=== PATIENT | male | born 1990 | race African-American/Black ===

== ENCOUNTER 2018-03-14 12:15 | Emergency (ER) | payer BC, SELFPAY ==
[2018-03-14 12:17] VITALS: BP 152/81; PULSE 98; RESP 16; TEMP 36.4; O2SAT 95; BMI 47.9
--- NOTE | 2018-03-14 12:28 | ED.DCSUM_ITS ---
- ER Visit Summary Date of Service: 03/14/18 Chief Complaint: Questionable wound infection History of Present Illness: The patient is a 27 M who sustained an abrasion to the right mid tibial area 8 days ago. He was working on a car when he slipped and sustained the abrasion. He states that he thought it was healing but then noticed some redness coming from it a couple days ago. There is been no drainage. No itching. No fevers. He has been using a triple antibiotic cream and a peroxide spray that he found at work. Physical Examination: Vital signs are reviewed. Right leg exam reveals an abrasion that measures approximately 4.5-5 cm in the mid tibial area. There is some mild surrounding erythema. There is a small pocket of serous fluid in the middle of this abrasion. Not tender to palpation. Test Results: None indicated Emergency Department Course and Treatment: Patient will be treated with Keflex. I will also give him bacitracin ointment for the surgery. He will follow-up with his PCP Treatment Plan: [] Disposition: Discharge Impression: Wound infection This note was generated with [employer] dictation software. It may contain incorrect words, spelling, and punctuation that were not noted in review of the chart prior to signing ED Disposition - Plan for ED Patient: Chief Complaint: Cellulitis Referrals: Care Physician,No Primary [Primary Care Provider] -
--- NOTE | 2018-03-14 12:28 | ED.DEP ---
ED Disposition - Plan for ED Patient: Disposition: Home or Assisted Living Chief Complaint: Cellulitis Instructions: Discharge Instructions for Cellulitis Prescriptions: Cephalexin [Keflex] 500 mg PO Q6 #28 cap Bacitracin Ointment 1 applic TOPICAL TID #1 tube Referrals: Care Physician,No Primary [Primary Care Provider] -
[2018-03-14] MEDS: Cephalexin 250 MG Capsule 500 MG PO (12:38)
== END 2018-03-14 12:41 | disposition home or self-care (01) ==
LOC: ED 12:35
PROVIDERS: Emergency Provider Emergency Medicine
DX: S80.811A Abrasion, right lower leg, initial encounter (principal); L08.9 Local infection of the skin and subcutaneous tissue, unspecified; W01.0XXA Fall on same level from slipping, tripping and stumbling without subsequent striking against object, initial encounter; Y93.89 Activity, other specified; Y92.9 Unspecified place or not applicable; Y99.9 Unspecified external cause status; Z72.0 Tobacco use
CPT/HCPCS: 99283

== ENCOUNTER 2018-03-17 19:15 | Emergency (ER) | payer BC, SELFPAY ==
[2018-03-17 19:16] VITALS: BP 155/100; PULSE 89; RESP 18; TEMP 37.2; O2SAT 97; BMI 52.7
[2018-03-17] MEDS: Clindamycin 600 MG/50 ML BAG 100 MG IV (20:55)
[2018-03-17 21:12] LABS: Absolute Lymphocyte Count 2.97 X10^3/ul (0.83-4.51); Absolute Neutrophil Count 7.4 X10^3/uL (2.0-7.7); Basophil# 0.04 X10^3/uL; Basophil% 0.3 % (0-1); Eosinophil# 0.28 X10^3/uL; Eosinophils% 2.4 % (0-5); Hematocrit 44.7 % (40-54); Hemoglobin 14.7 g/dl (13.0-16.5); Lymphocyte # 2.97 X10^3/ul (4.0); Lymphocyte % 25.7 % (19-41); Mean Corp Hgb Conc 32.9 g/gl (32-36); Mean Corpuscular Hgb 27.3 pg (27.0-32.0); Mean Corpuscular Volume 82.9 fL (80-94); Mean Platelet Vol. 10.5 fl (6.2-12.0); Monocyte# 0.81 X10^3/uL; Neutrophil # 7.43 X10^3/uL (2.7-7.7); Neutrophil % 64.5 % (47-70); POSITIVE COUNT NO; POSITIVE DIFFERENTIAL NO; POSITIVE MORPHOLOGY NO; Platelet Count 253 K/mm3 (150-450); RBC Distribution Width CV 12.6 % (11.6-14.6); RBC Distribution Width SD 37.6 fl (35.1-43.9); Red Blood Count 5.39 M/mm3 (4.6-6.2); White Blood Count 11.5 K/mm3 (4.4-11.0)
[2018-03-17 21:18] LABS: Anion Gap 4 (5-15); BUN 14 mg/dL (7-18); BUN/Creat Ratio 13.9 RATIO (10-20); Calcium,Total 9.4 mg/dL (8.5-10.1); Chloride 102 mmol/L (98-107); Creatinine, Serum 1.01 mg/dL (0.70-1.30); EST Glomerular Filtration Rate 95 mL/min (>60); Est Glom Filt Rate - Afr Amer 115 mL/min (>60); Estimated Creatinine Clearance 121.65 ml/min; Glucose 78 mg/dL (74-106); Sodium Level 137 mmol/L (136-145)
--- NOTE | 2018-03-17 21:48 | ED.DCSUM_ITS ---
- ER Visit Summary Date of Service: 03/17/18 Chief Complaint: Cellulitis right lower extremity History of Present Illness: The patient is a 27 M who developed abrasions to the right castillo 2 weeks ago. He noted some mild redness around the wound several days ago. He was seen in the ER yesterday. The wound was treated with bacitracin ointment and he was started on p.o. Keflex. The area of erythema was outlined. Patient presents back today stating the erythema extended slightly beyond the outline earlier today. With leg elevation it seems to be somewhat improved now. He also noted a new area of redness just inferior to the abrasions went to have this checked. He does not have fever or chills. Physical Examination: Vital signs include a blood pressure 155/100, otherwise unremarkable. Head neck examination is unremarkable. Heart is regular rate and rhythm. On lung sounds are clear. Abdomen is soft nontender. Right lower extremity examination reveals linear abrasions over the right castillo. He has mild surrounding erythema. This time as it does not extend beyond the previous outlined area. Calf is soft and nontender. Test Results: CBC was white count 11.5 with normal differential. Chemistry studies normal. Blood cultures are drawn. Emergency Department Course and Treatment: Patient is given a dose of clindamycin IV. Patient will have Bactrim added to his course of Keflex. I do not feel he requires admission for IV antibiotics at this time. Repeat blood pressure prior to discharge is 146/88. Patient was given return instructions. He understands. Treatment Plan: [] Disposition: Discharge Impression: Cellulitis right castillo This note was generated with [employer] dictation software. It may contain incorrect words, spelling, and punctuation that were not noted in review of the chart prior to signing ED Disposition - Plan for ED Patient: Disposition: Home or Assisted Living Chief Complaint: Cellulitis Instructions: ED Staph Infec Abx Tx Only Prescriptions: Smz/Tmp Ds [Bactrim Ds] 1 tablet PO BID #20 tablet Referrals: Page Williamson MD [STAFF PHYSICIAN] - As Needed
[2018-03-17 21:59] VITALS: BP 146/88; PULSE 77; RESP 16; O2SAT 96
== END 2018-03-17 23:46 | disposition home or self-care (01) ==
PROVIDERS: Emergency Provider Emergency Medicine
DX: L03.115 Cellulitis of right lower limb (principal); Z72.0 Tobacco use
CPT/HCPCS: 36415; 80048; 85025; 87040; 96365; 99285; A4216

== ENCOUNTER 2018-09-07 08:29 | Emergency (ER) | payer OTHER, SELFPAY ==
[2018-09-07 08:29] VITALS: BP 152/75; BP 160/85; PULSE 85; PULSE 88; RESP 17; TEMP 36.7; O2SAT 100; O2SAT 94; BMI 47.9
--- NOTE | 2018-09-07 08:33 | EKG12_ITS ---
Test Reason : CP Blood Pressure : / mmHG Vent. Rate : 079 BPM Atrial Rate : 079 BPM P-R Int : 168 ms QRS Dur : 080 ms QT Int : 372 ms P-R-T Axes : 043 -13 022 degrees QTc Int : 426 ms Normal sinus rhythm May be normal variant Borderline ECG Confirmed by BETTY PEARSON, SHAWN ([id number]), greeting card editor JOHNNY MORAN ([id number]) on 09/15/2018 1:11:11 PM Referred By: MELISA/ALESHIA Confirmed By:SHAWN HERNÁNDEZ MD
--- NOTE | 2018-09-07 08:33 | RAD_ITS ---
STUDY: X-RAY CHEST REASON FOR EXAM: Male, 27 years old. Anterior chest pain. TECHNIQUE: PA and lateral views of the chest. COMPARISON: Comparison is made with prior examination dated August 18, 2017. FINDINGS: EKG electrodes are seen. The lungs are clear and expanded. There is no demonstrated pleural abnormality. Normal size heart. Normal mediastinum and aaron. Normal visualized pulmonary arteries. Normal visualized aortic arch and descending thoracic aorta. Normal visualized thoracic spine. Normal visualized ribs, clavicles, and shoulders. There is no demonstrated abnormality of the visualized soft tissue structures of the upper abdomen. RAD/Chest PA and Lateral IMPRESSION: Normal x-ray examination of the chest. Electronically Signed: David Escobar MD at 9:06 EDT Tel [phone], Service support ,
--- NOTE | 2018-09-07 08:44 | ED.VISSUMM ---
- ER Visit Summary Date of Service: 09/07/18 Chief Complaint: Chest discomfort History of Present Illness: The patient is a 27 M history. Prior left shoulder scope. Patient states he typically gets up at 5:30 in the morning when he did today discuss back. Denies any nausea. No shortness of breath. No diaphoresis. Denies any recent exertional dyspnea. No history of DVT or PE. No risk factors. He denies any recent travel, surgery, mobilization. No calf pain or swelling. No hemoptysis. The pain is not pleuritic. He denies any change in the pain with movement. He denies any recent chest wall trauma. His work involves a lot of heavy lifting but he denies any injury to his chest wall. H is never had pain like this before. He has had reflux before but states this feels differently. He denies any recent illness other than he has had some mild diarrhea the last few days. Physical Examination: Vital signs are stable and afebrile. His initial blood pressure is 155. His pulse ox is 100% on room air no hypoxia. H EENT exam unremarkable. Neck nontender no JVD no lymphadenopathy. Lungs clear to auscultation bilaterally. Heart regular rate and rhythm no murmur. Chest wall is completely nontender. No ecchymosis or bruising. No subcu air crepitus. Abdomen is soft and nontender. Nondistended. Normal bowel sounds no peritoneal signs. No right upper quadrant tenderness. Patient is moving all 4 extremities. They are neurovascularly intact. Calves are nontender without edema or cords. He has equal and symmetrical project designer strength. Equal symmetrical dorsi plantarflexion. Equal symmetrical radial pulses. Back is completely nontender. Neurologically is awake and alert with no focal motor or sensory deficits. NIH score is 0. Test Results: EKG shows a sinus rhythm a rate of 79 OR or ischemia. No signs of pericarditis. Emergency Department Course and Treatment: [] Treatment Plan: [] Disposition: [] Impression: Acute chest pain This note was generated with [employer] dictation software. It may contain incorrect words, spelling, and punctuation that were not noted in review of the chart prior to signing ED Disposition - Plan for ED Patient: Chief Complaint: Chest Pain Referrals: Care Physician,No Primary [Primary Care Provider] -
--- NOTE | 2018-09-07 08:49 | ED.DCSUM_ITS ---
- ER Visit Summary Date of Service: 09/07/18 Chief Complaint: Chest discomfort History of Present Illness: The patient is a 27 M history. Prior left shoulder scope. Patient states he typically gets up at 5:30 in the morning when he did today discuss back. Denies any nausea. No shortness of breath. No d iaphoresis. Denies any recent exertional dyspnea. No history of DVT or PE. No risk factors. He denies any recent travel, surgery, mobilization. No calf pain or swelling. No hemoptysis. The pain is not pleuritic. He denies any change in the pain with movement. He denies any recent chest wall trauma. His work involves a lot of heavy lifting but he denies any injury to his chest wall. H is never had pain like this before. He has had reflux before but states this feels differently. He denies any recent illness other than he has had some mild diarrhea the last few days. Physical Examination: Vital signs are stable and afebrile. His initial blood pressure is 155. His pulse ox is 100% on room air no hypoxia. H EENT exam unremarkable. Neck nontender no JVD no lymphadenopathy. Lungs clear to auscultation bilaterally. Heart regular rate and rhythm no murmur. Chest wall is completely nontender. No ecchymosis or bruising. No subcu air crepitus. Abdomen is soft and nontender. Nondistended. Normal bowel sounds no peritoneal signs. No right upper quadrant tenderness. Patient is moving all 4 extremities. They are neurovascularly intact. Calves are nontender without edema or cords. He has equal and symmetrical key filer strength. Equal symmetrical dorsi plantarflexion. Equal symmetrical radial pulses. Back is completely nontender. Neurologically is awake and alert with no focal motor or sensory deficits. NIH score is 0. Test Results: EKG shows a sinus rhythm a rate of 79 LA or ischemia. No signs of pericarditis. Emergency Department Course and Treatment: [] Treatment Plan: [] Disposition: [] Impression: Acute chest pain This note was generated with [employer] dictation software. It may contain incorrect words, spelling, and punctuation that were not noted in review of the chart prior to signing ED Disposition - Plan for ED Patient: Chief Complaint: Chest Pain Referrals: Care Physician,No Primary [Primary Care Provider] -
[2018-09-07 09:57] VITALS: BP 129/87; PULSE 78; RESP 18; O2SAT 100
--- NOTE | 2018-09-07 09:59 | ED.DEP ---
ED Disposition - Plan for ED Patient: Disposition: Home or Assisted Living Chief Complaint: Chest Pain Instructions: ED Chest Pain Atypical Unkn Cause Referrals: Salvador Matute MD [STAFF PHYSICIAN] - As Needed Additional Instructions: Motrin and/or Tylenol for pain. Both your chest x-ray and EKG were normal today.
[2018-09-07 10:47] VITALS: BP 127/88; PULSE 82; RESP 16; TEMP 36.6; O2SAT 100
== END 2018-09-07 10:47 | disposition home or self-care (01) ==
PROVIDERS: Emergency Provider Emergency Medicine
DX: R07.9 Chest pain, unspecified (principal); R19.7 Diarrhea, unspecified; Z72.0 Tobacco use
CPT/HCPCS: 71046; 93005; 99284; A4216

== ENCOUNTER 2019-03-08 00:46 | Emergency (ER) | payer MEDICAID, SELFPAY ==
[2019-03-08 00:50] VITALS: BP 157/84; PULSE 90; RESP 18; TEMP 36.6; O2SAT 96; BMI 48.4
[2019-03-08 00:53] VITALS: RESP 18
--- NOTE | 2019-03-08 01:06 | ED.DCSUM_ITS ---
- ER Visit Summary Date of Service: 03/08/19 Chief Complaint: Back pain History of Present Illness: The patient is a 28 M who presents with back pain. This began 4 days ago. He describes it as sore and throbbing. He was helping his brother move a dresser. He states his brother slipped on the steps which caused him to twist his back. He also has developed some pain shooting down his left leg. He denies any urinary retention fecal incontinence prior back surgery abdominal pain or fever. He cannot take NSAIDs due to history of stomach irritation. Physical Examination: Afebrile vitals unremarkable No distress Regular Lungs clear Abdomen soft nontender Mild reproducible lumbar tenderness Normal strength and sensation of the lower extremities, 5 out of 5 dorsiflexion, plantarflexion, extensor hallucis longus Negative straight leg raise Test Results: Not indicated Emergency Department Course and Treatment: I discussed that patient may benefit from prednisone given his radicular symptoms. Incidentally the patient was actually started on prednisone today for bronchitis. He was advised to continue this as well as supportive care and the patient was discharged. Treatment Plan: [] Disposition: Discharge Impression: Lumbosacral strain This note was generated with [employer] dictation software. It may contain incorrect words, spelling, and punctuation that were not noted in review of the chart prior to signing ED Disposition - Plan for ED Patient: Referrals: Care Physician,No Primary [Primary Care Provider] -
--- NOTE | 2019-03-08 01:06 | ED.DEP ---
ED Disposition - Plan for ED Patient: Instructions: ED Sprain Strain Lumbar Referrals: Care Physician,No Primary [Primary Care Provider] -
[2019-03-08 01:25] VITALS: RESP 18
== END 2019-03-08 01:26 | disposition home or self-care (01) ==
LOC: ED 01:08
PROVIDERS: Emergency Provider Emergency Medicine
DX: S39.012A Strain of muscle, fascia and tendon of lower back, initial encounter (principal); X50.1XXA Overexertion from prolonged static or awkward postures, initial encounter; Y93.E6 Activity, residential relocation; Y92.9 Unspecified place or not applicable; Y99.9 Unspecified external cause status; Z72.0 Tobacco use
CPT/HCPCS: 99282

== ENCOUNTER 2019-03-25 05:27 | Emergency (ER) | payer MEDICAID, SELFPAY ==
[2019-03-25 05:27] VITALS: BP 145/80; PULSE 95; RESP 18; TEMP 36.6; O2SAT 96; BMI 48.4
--- NOTE | 2019-03-25 05:52 | ED.VISSUMM ---
- ER Visit Summary Date of Service: 03/25/19 Chief Complaint: Abdominal pain History of Present Illness: The patient is a 28 M who presents with abdominal pain. This began about 3 days ago. His pain is all epigastric. He describes as cramping. He is also had diarrhea. Had 4 episodes of diarrhea last night. He also reports some mild nausea with dry heaving. No fever chest pain shortness of breath. He denies any medical problems or daily medications. Physical Examination: Afebrile vitals unremarkable No distress resting comfortably Moist mucous membranes Heart regular rate and rhythm Lungs clear Abdomen soft he does have some epigastric abdominal tenderness No guarding no rebound Test Results: CBC, CMP, lipase all normal. Emergency Department Course and Treatment: Patient was given a GI cocktail. He reports unchanged symptoms on reevaluation. However laboratory studies are normal, vital signs are normal, he has no guarding or rebound. I do not believe this is an acute surgical pathology. He was given prescriptions for Bentyl and Prilosec. He was advised to follow-up as an outpatient and was discharged home. Treatment Plan: [] Disposition: Discharge Impression: Epigastric abdominal pain This note was generated with [employer] dictation software. It may contain incorrect words, spelling, and punctuation that were not noted in review of the chart prior to signing ED Disposition - Plan for ED Patient: Referrals: Care Physician,No Primary [Primary Care Provider] -
[2019-03-25] MEDS: Mag Hydrox/Al Hydrox/Simeth 30 ML UDC PO (05:55)
[2019-03-25 05:58] LABS: Absolute Lymphocyte Count 3.22 X10^3/ul (0.83-4.51); Absolute Neutrophil Count 5.8 X10^3/uL (2.0-7.7); Basophil# 0.03 X10^3/uL; Basophil% 0.3 % (0-1); Eosinophil# 0.29 X10^3/uL; Eosinophils% 2.9 % (0-5); Hematocrit 44.9 % (40-54); Hemoglobin 14.8 g/dl (13.0-16.5); Lymphocyte # 3.22 X10^3/ul (4.0); Lymphocyte % 31.8 % (19-41); Mean Corpuscular Hgb 27.6 pg (27.0-32.0); Mean Corpuscular Volume 83.8 fL (80-94); Mean Platelet Vol. 10.4 fl (6.2-12.0); Monocyte# 0.77 X10^3/uL; Monocyte% 7.6 % (0-10); Neutrophil # 5.81 X10^3/uL (2.7-7.7); Neutrophil % 57.2 % (47-70); Platelet Count 242 K/mm3 (150-450); RBC Distribution Width CV 12.7 % (11.6-14.6); RBC Distribution Width SD 38.2 fl (35.1-43.9); Red Blood Count 5.36 M/mm3 (4.6-6.2); White Blood Count 10.1 K/mm3 (4.4-11.0)
[2019-03-25 05:59] LABS: POSITIVE COUNT NO; POSITIVE DIFFERENTIAL NO; POSITIVE MORPHOLOGY NO
[2019-03-25 06:11] LABS: ALB/GLOB Ratio 0.7 RATIO (0.9-2.4); AST(SGOT) 29 U/L (15-37); Alanine Aminotransfer ALT/SGPT 51 U/L (16-61); Albumin, Serum 3.3 g/dL (3.2-5.0); Alkaline Phosphatase 94 U/L (45-117); Anion Gap 7 (5-15); BUN 18 mg/dL (7-18); BUN/Creat Ratio 15.1 RATIO (10-20); Calcium,Total 8.9 mg/dL (8.5-10.1); Chloride 104 mmol/L (98-107); Creatinine, Serum 1.19 mg/dL (0.70-1.30); EST Glomerular Filtration Rate 78 mL/min (>60); Est Glom Filt Rate - Afr Amer 94 mL/min (>60); Estimated Creatinine Clearance 117.51 ml/min; Globulin 4.7 g/dL (2.2-4.2); Glucose 97 mg/dL (74-106); Lipase 142 U/L (73-393); Potassium 3.7 mmol/L (3.5-5.1); Sodium Level 140 mmol/L (136-145)
--- NOTE | 2019-03-25 06:53 | ED.DEP ---
ED Disposition - Plan for ED Patient: Instructions: ED Abdominal Pain Unkn Cause Male Prescriptions: Dicyclomine HCl [Bentyl] 20 mg PO TIDAC #20 cap Omeprazole [Prilosec] 20 mg PO DAILY #30 cap Referrals: Care Physician,No Primary [Primary Care Provider] - Leann Rutherford MD [COURTESY STAFF PHYSICIAN] -
[2019-03-25 07:02] VITALS: BP 153/94; PULSE 75; RESP 17; O2SAT 95
== END 2019-03-25 07:03 | disposition home or self-care (01) ==
PROVIDERS: Emergency Provider Emergency Medicine
DX: R10.13 Epigastric pain (principal); R19.7 Diarrhea, unspecified; R11.0 Nausea; Z72.0 Tobacco use
CPT/HCPCS: 80053; 83690; 85025; 99285; J7030; A4216

== ENCOUNTER 2019-04-11 05:33 | Emergency (ER) | payer MEDICAID, SELFPAY ==
[2019-04-11 05:34] VITALS: BP 162/89; PULSE 88; RESP 18; TEMP 36.2; TEMP 36.4; O2SAT 97; O2SAT 98; BMI 49.6
--- NOTE | 2019-04-11 05:48 | RAD_ITS ---
STUDY: X-RAY CHEST REASON FOR EXAM: Male, 28 years old. Cough. Shortness of breath for 5 days. TECHNIQUE: PA and lateral chest. COMPARISON: September 07, 2018. FINDINGS: The lungs are clear and expanded. There is no demonstrated pleural abnormality. Normal size heart. Normal mediastinum and aaron. Normal visualized pulmonary arteries. Normal visualized aortic arch and descending thoracic aorta. Normal visualized thoracic spine. Normal visualized ribs, clavicles, and shoulders. There is no demonstrated abnormality of the visualized soft tissue structures of the upper abdomen. RAD/Chest PA and Lateral IMPRESSION: Normal x-ray examination of the chest. Electronically Signed: Tj Nolen MD at 6:18 EDT , Service support ,
--- NOTE | 2019-04-11 06:12 | ED.VISSUMM ---
- ER Visit Summary Date of Service: 04/11/19 Chief Complaint: Cough History of Present Illness: The patient is a 28 M with no primary care physician. He has a cough that began 1 week ago. Is productive of brown/green sputum without blood. Reports is mildly short of breath and has been wheezing. He has been using his daughter's nebulizer without relief. He does report he has had subjective fever, chills, and sweats. He does smoke 1/2 pack/day. States he had similar symptoms previously, but never this long. Patient also complains of headache that 6 out of 10 severity. Is that he has had similar headaches in the past. Complains of generalized weakness. Reports that he has upper abdominal pain with coughing only. He denies any fatty food intolerance. Physical Examination: Vitals: Stable. Afebrile. General: Well-nourished and well-developed. Head: Normocephalic atraumatic. Neck: Supple, no lymphadenopathy. No JVD. Nontender. Cardiovascular: Regular rate and rhythm. No murmurs. Respiratory: No respiratory distress. Mild wheezing bilaterally. Good air movement. Abdominal: Soft, mild epigastric tenderness to palpation, nondistended, normal bowel sounds. No guarding, rebound, or peritoneal signs. Back: Nontender. Extremities: Nontender, no edema. Skin: Normal color, no rash. Neurologic: Alert and oriented ?3. Cranial nerves II through XII are intact. Normal strength and sensation. Psych: Normal affect. Test Results: Chest x-ray shows no acute disease. Emergency Department Course and Treatment: Patient was treated albuterol Atrovent aerosols. He was given prednisone p.o. Treatment Plan: Patient will be discharged with a 5-day burst of prednisone, and albuterol MDI, and Prilosec. Instructed to follow-up the vitals [facility] in 1 to 2 days if not improving. Return to the emergency department for any worsening symptoms. Disposition: To home in improved and stable condition. Impression: 1. URI with bronchospasm. This note was generated with [employer] dictation software. It may contain incorrect words, spelling, and punctuation that were not noted in review of the chart prior to signing ED Disposition - Plan for ED Patient: Instructions: ED URI Viral W Wheezing Prescriptions: Albuterol Inhaler [Ventolin Hfa] 2 puff INHALATION Q4H PRN PRN #1 inhaler PRN Reason: Wheezing Omeprazole [Prilosec] 20 mg PO DAILY #30 cap Prednisone [Deltasone] 60 mg PO DAILY #15 tablet Referrals: Gina Morrison [NON-STAFF] - 1-2 Days if not improving
[2019-04-11] MEDS: Ipratropium/Albuterol Sulfate 3 ML AMPUL.NEB INHALATION (06:21)
[2019-04-11 06:23] VITALS: PULSE 80; RESP 18
[2019-04-11] MEDS: predniSONE 20 MG Tablet 60 MG PO (06:48)
[2019-04-11 06:49] VITALS: BP 144/71; PULSE 85; RESP 20; O2SAT 99
== END 2019-04-11 06:50 | disposition home or self-care (01) ==
LOC: ED 06:09
PROVIDERS: Emergency Provider Emergency Medicine
DX: J06.9 Acute upper respiratory infection, unspecified (principal)
CPT/HCPCS: 71046; 94640; 99283

== ENCOUNTER 2019-05-25 02:01 | Emergency (ER) | payer MEDICAID, SELFPAY ==
[2019-05-25 02:02] VITALS: BP 160/100; PULSE 98; RESP 18; TEMP 36.9; O2SAT 96; BMI 47.0
--- NOTE | 2019-05-25 02:10 | RAD_ITS ---
HISTORY: With pulling something healthy and felt a pop at the PIP joint of the left middle finger. Pain. Swelling. 3 images of the left third digit. Findings: An avulsion fracture is present off of the dorsal aspect of the proximal end of the third middle phalanx at the insertion of the extensor tendon. Bony alignment is normal. Joint spaces are preserved. Focal soft tissue swelling is present. No additional fractures are perceived. RAD/Finger(s) Min 2 Views IMPRESSION: Avulsion fracture off the proximal end of the dorsal aspect of the third middle phalanx at the insertion of the extensor tendon. at 0253 Reported and signed by: Reece Martin MD Electronically Signed: Reece Martin MD at 2:52 EDT Tel , Service support ,
--- NOTE | 2019-05-25 02:42 | ED.DCSUM_ITS ---
- ER Visit Summary Date of Service: 05/25/19 Chief Complaint: Left long finger pain History of Present Illness: The patient is a 28 M who presents with an injury to his left long finger. He was working on a car and pulling out apart. He states he pulled his middle finger and felt a pop. He complains of some mild swelling and burning pain and reports decreased function/range of motion. Physical Examination: Afebrile vitals unremarkable Patient has normal range of motion at the left third MCP however he has limited range of motion at the proximal and distal interphalangeal joints there is a deformity over the proximal interphalangeal joint and a subtle boutonniere deformity Test Results: X-ray of the finger shows a fracture of the middle phalanx of the left third finger at the proximal and dorsal portion Emergency Department Course and Treatment: X-ray as above. X-ray findings and physical exam findings also are consistent with an injury of the extensor tendon. Patient was placed in a finger splint and referred to orthopedics for follow-up. Patient advised on supportive care for pain such as anti- inflammatories ice and elevation. He understands return for new or worsening symptoms. He was discharged. Treatment Plan: [] Disposition: Discharge Impression: Phalanx fracture Extensor tendon injury This note was generated with [employer] dictation software. It may contain incorrect words, spelling, and punctuation that were not noted in review of the chart prior to signing ED Disposition - Plan for ED Patient: Referrals: Care Physician,No Primary [Primary Care Provider] -
--- NOTE | 2019-05-25 02:45 | ED.DEP ---
ED Disposition - Plan for ED Patient: Instructions: Tendon Rupture, Finger, FRACTURE, Finger (Closed) Referrals: Care Physician,No Primary [Primary Care Provider] - Elie Schneider DO [STAFF PHYSICIAN] -
[2019-05-25 02:56] VITALS: BP 158/99; PULSE 87; RESP 18; O2SAT 96
== END 2019-05-25 02:57 | disposition home or self-care (01) ==
LOC: ED 02:22
PROVIDERS: Emergency Provider Emergency Medicine
DX: S62.623A Displaced fracture of middle phalanx of left middle finger, initial encounter for closed fracture (principal); S66.303A Unspecified injury of extensor muscle, fascia and tendon of left middle finger at wrist and hand level, initial encounter; X50.9XXA Other and unspecified overexertion or strenuous movements or postures, initial encounter; Y93.89 Activity, other specified; Y92.89 Other specified places as the place of occurrence of the external cause; Y99.9 Unspecified external cause status; M20.029 Boutonniere deformity of unspecified finger(s); Z72.0 Tobacco use
CPT/HCPCS: 73140; 99283

== ENCOUNTER 2019-06-08 23:01 | Emergency (ER) | payer MEDICAID, SELFPAY ==
[2019-05-27 09:25] VITALS: BMI 47.0
[2019-06-08 23:02] VITALS: BP 147/98; PULSE 91; RESP 15; TEMP 36.6; O2SAT 97; BMI 49.8
--- NOTE | 2019-06-08 23:32 | ED.DCSUM_ITS ---
History of Present Illness Chief Complaint: Upper Extremity Injury Informant: Patient Onset: Weeks - 2 Context: Sudden Onset Timing: Continuous Quality of Pain: Aching Current Severity: Moderate Maximum Severity: Moderate Worsened by: moving Relieved by: remaining still Associated Symptoms: Loss of Funtion. Negative for: Parasthesia, Weakness Narrative: Patient presents for persistent pain in his left long finger. He was seen here around 2 weeks ago and diagnosed with a tendon injury as well as a fracture of the proximal aspect of the middle phalanx of his left long finger. He states he was splinted but it disintegrated with sweat and doing things. He has been gladys taping off and on which seems to help as well. His stomach cannot tolerate anti-inflammatories. He states he has an appointment with a hand surgeon for June 16 in [place], where he was referred after following up with orthopedics here. Past Medical History - Allergies and Home Meds Allergies/Adverse Reactions: Allergies ibuprofen [From Motrin] Adverse Reaction (Verified 06/08/19 23:07) Upset Stomach naproxen Adverse Reaction (Verified 06/08/19 23:07) Upset Stomach Primary Care Physician: Care Physician,No Primary [Primary Care Provider] - Past Medical History: None Surgical History: no surgical history Lives: Spouse/ Significant Other Smoking Status: Current every day smoker Review of Systems Musculoskeletal: Reports: Extremity Pain Neurological: Denies: Weakness, Parasthesia Physical Exam Vital Signs/Narrative: Vital Signs Temp Pulse Resp BP Pulse Ox 06/08/19 23:02 97.9 F 91 15 147/98 H 97 General: Well nourished, Well developed, - - well-appearing, nad Head: Normocephalic, Atraumatic Extremeties: Tenderness left long finger PIP joint, he is able to extend the finger but limited distally, FDS, but there is limited flexion of the FDP tendon. There is no sign of infection or break in the skin. No other areas of tenderness. Skin: Normal color, No rash Neurological: Alert, Oriented x3, Cranial nerves II-XII grossly intact, Normal Strength, Normal Sensation, Normal Gait Psychological: Normal affect, Normal Mood Diagnostic/Tx/Re-eval - Medical Decision Making I placed the patient in a new splint. We bent it so that his finger is in a comfortable neutral position. He was given a single Tylenol 3 to take, I advised other measures of supportive care but I do not think prescribing narcotics as necessary for this. He is in agreement and will follow-up as scheduled. Procedures - Upper Extremity Splints Upper Extremity Splint: Enrriqueoajaime Splint Fabrication: Fabricated - Neurovascularly intact distally after placement by MD. Location: Left ED Disposition - Plan for ED Patient: Disposition: Home or Assisted Living Diagnosis: Fracture of middle phalanx of left middle finger Instructions: FRACTURE, Finger (Closed) Referrals: surgeon, hand [Other] (as scheduled)
[2019-06-08] MEDS: Acetaminophen/Codeine #3 Tablet 1 TABLET PO (23:33)
[2019-06-08 23:38] VITALS: BP 147/98; PULSE 91; RESP 15; O2SAT 97
== END 2019-06-08 23:38 | disposition home or self-care (01) ==
LOC: ED 23:34
PROVIDERS: Emergency Provider Emergency Medicine
DX: S62.603D Fracture of unspecified phalanx of left middle finger, subsequent encounter for fracture with routine healing (principal); X58.XXXD Exposure to other specified factors, subsequent encounter; Z88.6 Allergy status to analgesic agent; F17.200 Nicotine dependence, unspecified, uncomplicated
CPT/HCPCS: 99283

== ENCOUNTER 2019-07-19 16:38 | Emergency (ER) | payer MEDICAID, SELFPAY ==
[2019-07-19 16:38] VITALS: BP 162/100; PULSE 103; RESP 16; TEMP 36.6; O2SAT 95; BMI 49.2
--- NOTE | 2019-07-19 17:38 | ED.DCSUM_ITS ---
History of Present Illness Chief Complaint: Abd Pain Informant: Patient Onset: Yesterday Context: Sudden Onset Timing: Intermittent Current Severity: Mild Maximum Severity: Severe Narrative: Patient is a 28-year-old male with no past medical history presenting with 1 day of nausea, vomiting and diarrhea. Patient states he is cramping abdominal pain and swelling associated with these episodes. He states he is vomited 4 times overnight and has had multiple episodes of diarrhea. He denies any black or blood in his stool. He denies any fever. He notes his has had similar symptoms. Antibiotics are history of C. difficile. He is not aware of eating anything that could have caused the symptoms. Patient states his urine has been very dark. He denies any other complaints or concerns at this time. He currently does not have any abdominal pain. Patient does not have any history of abdominal surgeries. Past Medical History - Allergies and Home Meds Allergies/Adverse Reactions: Allergies ibuprofen [From Motrin] Adverse Reaction (Verified 07/19/19 16:40) Upset Stomach naproxen Adverse Reaction (Verified 07/19/19 16:40) Upset Stomach Primary Care Physician: Amari Flynn MD [STAFF PHYSICIAN] - Care Physician,No Primary [Primary Care Provider] - Past Medical History: None Surgical History: - - Left shoulder surgery Lives: Spouse/ Significant Other Smoking Status: Current every day smoker Review of Systems All systems negative except as indicated General: Reports: Sweats Gastrointestinal: Reports: Abdominal pain - Cramping, diffuse, Nausea, Vomiting, Diarrhea Physical Exam Vital Signs/Narrative: Vital Signs Temp Pulse Resp BP Pulse Ox 07/19/19 16:38 98 F 103 H 16 162/100 H 95 Inital Vital Signs reviewed: Yes General: Well nourished, Well developed, Obese, No Acute Distress Head: Normocephalic, Atraumatic Eyes: Perrl, EOMI ENT: No rhinorrhea, Dry mucous membranes Neck: Supple, Nontender Cardiovascular: Regular rate, Regular rhythm, No murmurs Respiratory: No distress, CTA bilaterally, Chest nontender Abdomen: Soft, Nontender, Nondistended, Normal bowel sounds. Negative for: Tender, Guarding, Rebound tenderness, Rovsig's sign, Love's sign Back: Nontender, Normal Inspection Extremities: Nontender, No edema Skin: Normal color, No rash Neurological: Alert, Oriented x3, Cranial nerves II-XII grossly intact, Normal Strength, Normal Sensation Psychological: Normal affect, Normal Mood Diagnostic/Tx/Re-eval Laboratory Results - last 24 hr 07/19/19 07/19/19 17:45 17:45 WBC 10.1 RBC 5.36 Hgb 14.8 Hct 45.7 MCV 85.3 MCH 27.6 MCHC 32.4 RDW Std Deviation 38.5 RDW Coeff of Renan 12.4 Plt Count 237 MPV 10.4 Immature Gran % (Auto) 0.300 Neut % (Auto) 61.8 Lymph % (Auto) 26.2 [place] % (Auto) 8.4 Eos % (Auto) 2.7 Baso % (Auto) 0.6 Absolute Neuts (auto) 6.3 Absolute Lymphs (auto) 2.66 Nucleated RBC % 0 Sodium 141 Potassium 3.8 Chloride 105 Carbon Dioxide 29.0 Anion Gap 7 BUN 14 Creatinine 1.16 Estim Creat Clear Calc 117.44 Est GFR (MDRD) Af Amer 97 Est GFR (MDRD) Non-Af 80 BUN/Creatinine Ratio 12.1 Glucose 84 Calcium 9.0 Total Bilirubin 0.60 AST 36 ALT 43 Alkaline Phosphatase 103 Total Protein 8.2 Albumin 3.7 Globulin 4.5 H Albumin/Globulin Ratio 0.8 L Lipase 159 - Medical Decision Making She is evaluated for abdominal pain associated with vomiting diarrhea. His presentation is consistent with gastroenteritis. Electrolytes are normal. He is given IV fluids and Zofran. Improvement with treatment. His abdomen is soft and nontender. I do not think imaging is indicated at this time. He is stable for outpatient follow-up and discharge home. He is given a course of Zofran at discharge. Patient is counseled on signs and symptoms requiring return to the emergency room. Patient is given a PCP to follow-up with. Patient verbalizes agreement and understand this plan. Patient discharged home in stable and improved condition. ED Disposition - Plan for ED Patient: Disposition: Home or Assisted Living Diagnosis: Nausea vomiting and diarrhea Instructions: DIARRHEA, Viral (Child) (Adult), ABDOMINAL PAIN, Unkown Cause, (Male) Prescriptions: Ondansetron [Zofran Odt] 4 mg PO Q8H PRN PRN #12 tab PRN Reason: Nausea Prescription Printed Referrals: Care Physician,No Primary [Primary Care Provider] - Amari Flynn MD [STAFF PHYSICIAN] - Additional Instructions: Drink plenty of fluids. Use good hand hygiene. Take Pepto-Bismol as needed for diarrhea.
[2019-07-19] MEDS: Ondansetron 4 MG/2 ML Vial IV (17:48)
[2019-07-19] MEDS: 0.9% Normal Saline 1,000 ML 1000 ML IV (17:48)
[2019-07-19 17:57] LABS: Absolute Lymphocyte Count 2.66 X10^3/uL (0.83-4.51); Absolute Neutrophil Count 6.3 X10^3/uL (2.0-7.7); Basophil# 0.06 X10^3/uL; Basophil% 0.6 % (0-1); Eosinophil# 0.27 X10^3/uL; Eosinophils% 2.7 % (0-5); Hematocrit 45.7 % (40-54); Hemoglobin 14.8 g/dL (13.0-16.5); Lymphocyte # 2.66 X10^3/ul (4.0); Lymphocyte % 26.2 % (19-41); Mean Corp Hgb Conc 32.4 g/dL (32-36); Mean Corpuscular Hgb 27.6 pg (27.0-32.0); Mean Corpuscular Volume 85.3 fL (80-94); Mean Platelet Vol. 10.4 fl (6.2-12.0); Monocyte# 0.85 X10^3/uL; Monocyte% 8.4 % (0-10); NRBC Flagged by Analyzer 0 % (0-5); Neutrophil # 6.27 X10^3/uL (2.7-7.7); Neutrophil % 61.8 % (47-70); Platelet Count 237 K/mm3 (150-450); RBC Distribution Width CV 12.4 % (11.6-14.6); RBC Distribution Width SD 38.5 fl (35.1-43.9); Red Blood Count 5.36 M/mm3 (4.6-6.2); White Blood Count 10.1 K/mm3 (4.4-11.0)
[2019-07-19 18:18] LABS: ALB/GLOB Ratio 0.8 RATIO (0.9-2.4); AST(SGOT) 36 U/L (15-37); Alanine Aminotransfer ALT/SGPT 43 U/L (16-61); Albumin, Serum 3.7 g/dL (3.2-5.0); Alkaline Phosphatase 103 U/L (45-117); Anion Gap 7 (5-15); BUN 14 mg/dL (7-18); BUN/Creat Ratio 12.1 RATIO (10-20); Chloride 105 mmol/L (98-107); Creatinine, Serum 1.16 mg/dL (0.70-1.30); EST Glomerular Filtration Rate 80 mL/min (>60); Est Glom Filt Rate - Afr Amer 97 mL/min (>60); Estimated Creatinine Clearance 117.44 ml/min; Globulin 4.5 g/dL (2.2-4.2); Glucose 84 mg/dL (74-106); Lipase 159 U/L (73-393); Potassium 3.8 mmol/L (3.5-5.1); Protein, Total 8.2 g/dL (6.4-8.2); Sodium Level 141 mmol/L (136-145)
[2019-07-19 18:48] VITALS: BP 132/70; PULSE 83; RESP 16; O2SAT 99
[2019-07-19 19:22] VITALS: BP 144/71; PULSE 75; RESP 17; O2SAT 98
== END 2019-07-19 19:25 | disposition home or self-care (01) ==
PROVIDERS: Emergency Provider Emergency Medicine
DX: R11.2 Nausea with vomiting, unspecified (principal); R19.7 Diarrhea, unspecified; F17.200 Nicotine dependence, unspecified, uncomplicated; Z88.6 Allergy status to analgesic agent
CPT/HCPCS: 80053; 83690; 85025; 96361; 96374; 99284; J7030; A4216; J2405

== ENCOUNTER 2019-10-25 23:58 | Emergency (ER) | payer MEDICAID, SELFPAY ==
[2019-10-25 23:59] VITALS: BP 128/84; PULSE 110; RESP 22; TEMP 36.7; O2SAT 95; BMI 48.5
[2019-10-26 00:04] VITALS: BP 128/84; PULSE 110; RESP 22; TEMP 36.7; O2SAT 95
--- NOTE | 2019-10-26 00:31 | RAD_ITS ---
STUDY: X-RAY CHEST REASON FOR EXAM: Male, 28 years old. Shortness of breath, cough and dizziness TECHNIQUE: PA and lateral views of the chest. COMPARISON: 04/11/2019 FINDINGS: The lungs are clear and expanded. There is no demonstrated pleural abnormality. Normal size heart. Normal mediastinum and aaron. Normal visualized pulmonary arteries. Normal visualized aortic arch and descending thoracic aorta. Normal visualized thoracic spine. Normal visualized ribs, clavicles, and shoulders. There is no demonstrated abnormality of the visualized soft tissue structures of the upper abdomen. RAD/Chest PA and Lateral IMPRESSION: Normal x-ray examination of the chest. Electronically Signed: Pedro Lai MD at 1:26 EST Tel , Service support ,
--- NOTE | 2019-10-26 00:32 | ED.VIS.GEN ---
History of Present Illness Chief Complaint: General Illness Detail of Chief Complaint: Cough, congestion, posttussive emesis Informant: Patient Onset: Weeks Context: Gradual Onset Timing: Waxes and wanes Current Severity: Moderate Maximum Severity: Moderate Narrative: Patient presents with a two-week history of illness. He states it started out as a head cold and moved out into his chest. Is been coughing up brown to green-colored sputum. He has body aches. He had subjective fever and chills with sweats at home. He now has posttussive emesis as well. - Past Medical History (1) Anxiety Status: Chronic (2) Depression Status: Chronic (3) GERD (gastroesophageal reflux disease) Status: Chronic Past Medical History - Allergies and Home Meds Allergies/Adverse Reactions: Allergies ibuprofen [From Motrin] Adverse Reaction (Verified 10/26/19 00:01) Upset Stomach naproxen Adverse Reaction (Verified 10/26/19 00:01) Upset Stomach Primary Care Physician: Care Physician,No Primary [Primary Care Provider] - Surgical History: - - Left shoulder surgery Lives: With Family Smoking Status: Current every day smoker Review of Systems General: Reports: Chills, Fever, Subjective ENT: Reports: - - Head congestion Cardiovascular: Denies: Chest pain Respiratory: Reports: Dyspnea, Cough, Sputum Gastrointestinal: Reports: Vomiting. Denies: Diarrhea Musculoskeletal: Reports: Myalgias Neurological: Denies: Headache Allergy: Denies: Uticaria Physical Exam Vital Signs/Narrative: Vital Signs Temp Pulse Resp BP Pulse Ox 10/26/19 00:04 98.1 F 110 H 22 H 128/84 H 95 10/25/19 23:59 98.1 F 110 H 22 H 128/84 H 95 Inital Vital Signs reviewed: Yes General: Well nourished, Well developed Head: Normocephalic ENT: Moist mucous membranes Cardiovascular: Tachycardia Respiratory: No distress, CTA bilaterally Abdomen: Soft, Nontender, Hypoactive bowel sounds Extremities: Nontender Skin: Normal color Neurological: Alert, Oriented x3 Psychological: Normal affect Diagnostic/Tx/Re-eval Impressions Chest X-Ray 10/26/19 00:31 IMPRESSION: Normal x-ray examination of the chest. Electronically Signed: Pedro Lai MD at 1:26 EST Tel , Service support , 10/26/19 00:31 Chest PA and Lateral [RAD] Stat Laboratory Results 10/26/19 10/26/19 10/26/19 01:00 01:00 01:00 WBC 11.6 H RBC 5.34 Hgb 14.5 Hct 45.6 MCV 85.4 MCH 27.2 MCHC 31.8 L RDW Std Deviation 39.1 RDW Coeff of Renan 12.7 Plt Count 238 MPV 10.8 Immature Gran % (Auto) 0.300 Neut % (Auto) 69.9 Lymph % (Auto) 16.4 L [place] % (Auto) 8.3 Eos % (Auto) 4.5 Baso % (Auto) 0.6 Absolute Neuts (auto) 8.1 H Absolute Lymphs (auto) 1.90 Nucleated RBC % 0 Sodium 140 Potassium 4.1 Chloride 106 Carbon Dioxide 28.0 Anion Gap 6 BUN 16 Creatinine 1.17 Estim Creat Clear Calc 116.43 Est GFR (MDRD) Af Amer 96 Est GFR (MDRD) Non-Af 79 BUN/Creatinine Ratio 13.7 Glucose 85 Lactic Acid 1.2 Calcium 8.9 Total Bilirubin 0.20 Direct Bilirubin 0.12 AST 30 ALT 41 Alkaline Phosphatase 91 Total Protein 8.1 Albumin 3.7 Globulin 4.4 H Lipase 83 Urine Color Urine Clarity Urine pH Ur Specific [place] Urine Protein Urine Glucose (UA) Urine Ketones Urine Occult Blood Urine Nitrite Urine Bilirubin Urine Urobilinogen Ur Leukocyte Esterase Urine RBC Urine WBC Ur Squamous Epith Cells Urine Bacteria Urine Mucus 10/26/19 02:50 WBC RBC Hgb Hct MCV MCH MCHC RDW Std Deviation RDW Coeff of Renan Plt Count MPV Immature Gran % (Auto) Neut % (Auto) Lymph % (Auto) [place] % (Auto) Eos % (Auto) Baso % (Auto) Absolute Neuts (auto) Absolute Lymphs (auto) Nucleated RBC % Sodium Potassium Chloride Carbon Dioxide Anion Gap BUN Creatinine Estim Creat Clear Calc Est GFR (MDRD) Af Amer Est GFR (MDRD) Non-Af BUN/Creatinine Ratio Glucose Lactic Acid Calcium Total Bilirubin Direct Bilirubin AST ALT Alkaline Phosphatase Total Protein Albumin Globulin Lipase Urine Color Yellow Urine Clarity Clear Urine pH 6.5 Ur Specific [place] 1.015 Urine Protein Negative Urine Glucose (UA) Normal Urine Ketones 15 H Urine Occult Blood Negative Urine Nitrite Negative Urine Bilirubin Negative Urine Urobilinogen 1 H Ur Leukocyte Esterase Negative Urine RBC 0 SEEN Urine WBC 0 SEEN Ur Squamous Epith Cells 0-5 SEEN Urine Bacteria RARE Urine Mucus 0 SEEN - Medical Decision Making Patient was given IV fluids here along with a DuoNeb treatment. On repeat evaluation lung sounds are improved. O2 sats are stable in the mid 90s. Patient will be given an albuterol inhaler for home. He will use Tylenol or ibuprofen and increase fluids. ED Disposition - Plan for ED Patient: Disposition: Home or Assisted Living Diagnosis: Viral syndrome Instructions: VIRAL SYNDROME (Adult) Prescriptions: Albuterol Inhaler [Ventolin Hfa] 1 - 2 puff INHALATION Q4H PRN PRN #1 inhaler PRN Reason: Wheezing Transmission Status: Pending to [facility] Referrals: Cash Lombardo MD [NON-STAFF] - As Needed
[2019-10-26] MEDS: Ipratropium/Albuterol Sulfate 3 ML AMPUL.NEB INHALATION (00:44)
[2019-10-26 00:45] VITALS: PULSE 113; RESP 18
[2019-10-26] MEDS: 0.9% Normal Saline 1,000 ML 1000 ML IV (01:08)
[2019-10-26 01:11] LABS: Absolute Neutrophil Count 8.1 X10^3/uL (2.0-7.7); Basophil# 0.07 X10^3/uL; Basophil% 0.6 % (0-1); Eosinophil# 0.52 X10^3/uL; Eosinophils% 4.5 % (0-5); Hematocrit 45.6 % (40-54); Hemoglobin 14.5 g/dL (13.0-16.5); Lymphocyte % 16.4 % (19-41); Mean Corp Hgb Conc 31.8 g/dL (32-36); Mean Corpuscular Hgb 27.2 pg (27.0-32.0); Mean Corpuscular Volume 85.4 fL (80-94); Mean Platelet Vol. 10.8 fl (6.2-12.0); Monocyte# 0.96 X10^3/uL; Monocyte% 8.3 % (0-10); NRBC Flagged by Analyzer 0 % (0-5); Neutrophil # 8.11 X10^3/uL (2.7-7.7); Neutrophil % 69.9 % (47-70); Platelet Count 238 K/mm3 (150-450); RBC Distribution Width CV 12.7 % (11.6-14.6); RBC Distribution Width SD 39.1 fl (35.1-43.9); Red Blood Count 5.34 M/mm3 (4.6-6.2); White Blood Count 11.6 K/mm3 (4.4-11.0)
[2019-10-26 01:27] LABS: AST(SGOT) 30 U/L (15-37); Alanine Aminotransfer ALT/SGPT 41 U/L (16-61); Albumin, Serum 3.7 g/dL (3.2-5.0); Alkaline Phosphatase 91 U/L (45-117); Anion Gap 6 (5-15); BUN 16 mg/dL (7-18); BUN/Creat Ratio 13.7 RATIO (10-20); Bilirubin, Direct 0.12 mg/dL (0.00-0.30); Calcium,Total 8.9 mg/dL (8.5-10.1); Chloride 106 mmol/L (98-107); Creatinine, Serum 1.17 mg/dL (0.70-1.30); EST Glomerular Filtration Rate 79 mL/min (>60); Est Glom Filt Rate - Afr Amer 96 mL/min (>60); Estimated Creatinine Clearance 116.43 ml/min; Globulin 4.4 g/dL (2.2-4.2); Glucose 85 mg/dL (74-106); Lipase 83 U/L (73-393); Potassium 4.1 mmol/L (3.5-5.1); Protein, Total 8.1 g/dL (6.4-8.2); Sodium Level 140 mmol/L (136-145)
[2019-10-26 01:33] VITALS: BP 141/72; PULSE 85; RESP 14; TEMP 36.9; O2SAT 94
[2019-10-26 01:33] LABS: Lactic Acid 1.2 mmol/L (0.4-1.9)
[2019-10-26 02:24] VITALS: BP 134/83; PULSE 83; RESP 18; O2SAT 95
[2019-10-26 02:55] LABS: Mucous, Urine 0 SEEN /hpf (<or=2+); Red Blood Cells-Urine 0 SEEN /hpf (0-5); White Blood Cells 0 SEEN /hpf (0-5)
[2019-10-26 02:58] VITALS: BP 140/68; PULSE 90; RESP 18; TEMP 36.9; O2SAT 96
[2019-10-26] MEDS: 0.9% Normal Saline 1,000 ML 150 ML IV (02:59)
[2019-10-26 03:08] LABS: Color, Urine Yellow (Yellow); Glucose, Dipstick Normal (Normal); Ketone-Dipstick 15 mg/dl (Negative); Leukocyte Esterase-Dipstick Negative /ul (Negative); Nitrite-Dipstick Negative (Negative); Occult Blood-Urine Negative /ul (Negative); Protein-Dipstick Negative (Negative); Specific Gravity, Urine 1.015 (1.002-1.030); Urine Bilirubin Dipstick Negative (Negative); Urine Clarity Clear (Clear); Urine Urobilinogen 1 mg/dl (Normal); Urine pH 6.5 (5.0 - 8.0)
[2019-10-26 03:10] LABS: Bacteria RARE /hpf (None Seen); Squamous Epithelial Cells - UA 0-5 SEEN /hpf (0-5)
== END 2019-10-26 03:26 | disposition home or self-care (01) ==
PROVIDERS: Emergency Provider Emergency Medicine
DX: B34.9 Viral infection, unspecified (principal); R68.83 Chills (without fever); R09.81 Nasal congestion; R06.00 Dyspnea, unspecified; R05 Cough; R11.10 Vomiting, unspecified; M79.10 Myalgia, unspecified site; R61 Generalized hyperhidrosis; F17.200 Nicotine dependence, unspecified, uncomplicated
CPT/HCPCS: 71046; 80048; 80076; 81001; 83605; 83690; 85025; 87040; 94640; 96360; 99285; J7030

== ENCOUNTER 2020-05-27 00:52 | Emergency (ER) | payer MEDICAID, SELFPAY ==
[2020-05-27 00:53] VITALS: BP 143/90; PULSE 84; RESP 18; TEMP 36.6; O2SAT 96; BMI 49.9
[2020-05-27 01:00] VITALS: BP 145/83
--- NOTE | 2020-05-27 01:23 | ED.DCSUM_ITS ---
History of Present Illness Chief Complaint: Abd Pain Informant: Patient Narrative: 29-year-old male presents with abdominal pain. He states it is in his mid abdomen. He does states he has a 3 of acid reflux and has had more dyspepsia recently however this pain is not associated with that area is usually affected. He states not burning. He states he has been able to make a bowel movement. No urinary complaints. He is not vomiting. He states he has diminished p.o. intake. Not had a fever. Past Medical History - Allergies and Home Meds Allergies/Adverse Reactions: Allergies ibuprofen [From Motrin] Adverse Reaction (Verified 05/27/20 00:53) Upset Stomach naproxen Adverse Reaction (Verified 05/27/20 00:53) Upset Stomach Primary Care Physician: Care Physician,No Primary [Primary Care Provider] - Prior records reviewed: Yes Surgical History: - - Left shoulder surgery Smoking Status: Light Smoker (<10/day) Alcohol: None Drugs: None Review of Systems General: Denies: Chills, Fever Eyes: Denies: Visual changes - bilaterally, Diplopia ENT: Denies: Rhinorrhea, Sore throat Cardiovascular: Denies: Chest pain, Palpitations Respiratory: Denies: Dyspnea, Cough Gastrointestinal: Reports: Abdominal pain, Nausea Genitourinary: Denies: Dysuria, Hematuria Musculoskeletal: Denies: Myalgias Skin: Denies: Rash Neurological: Denies: Headache Psych: Reports: Depression Physical Exam Vital Signs/Narrative: Vital Signs Temp Pulse Resp BP Pulse Ox 05/27/20 01:00 145/83 H 05/27/20 00:53 97.9 F 84 18 143/90 H 96 General: Obese, No Acute Distress Eyes: Perrl, EOMI. Negative for: Scleral icterus ENT: Moist mucous membranes Cardiovascular: Regular rate, Regular rhythm Respiratory: No distress, CTA bilaterally Abdomen: Tender - There is to palpation in the mid abdomen. No right upper quadrant or right lower quadrant pain. Extremities: Nontender Skin: Normal color, No rash Neurological: Alert, Oriented x3 Psychological: Normal affect Diagnostic/Tx/Re-eval Clinical Impression(s) from Imaging Studies Abdomen/Pelvis CT 05/27/20 01:28 IMPRESSION: Negative enhanced CT of the abdomen and pelvis. Electronically Signed: Sterling Mclain, at 3:01 EDT Tel , Service support , Laboratory Data 05/27/20 05/27/20 01:02 01:02 WBC 13.3 H RBC 5.04 Hgb 14.0 Hct 43.7 MCV 86.7 MCH 27.8 MCHC 32.0 RDW Std Deviation 39.5 RDW Coeff of Renan 12.7 Plt Count 258 MPV 11.3 Immature Gran % (Auto) 0.400 Neut % (Auto) 57.2 Lymph % (Auto) 34.8 [place] % (Auto) 5.0 Eos % (Auto) 2.0 Baso % (Auto) 0.6 Absolute Neuts (auto) 7.6 Absolute Lymphs (auto) 4.62 H Nucleated RBC % 0 Sodium 139 Potassium 4.0 Chloride 107 Carbon Dioxide 26.0 Anion Gap 6 BUN 19 H Creatinine 1.20 Estim Creat Clear Calc 112.52 Est GFR (MDRD) Af Amer 92 Est GFR (MDRD) Non-Af 76 BUN/Creatinine Ratio 15.8 Glucose 128 H Calcium 8.6 Total Bilirubin 0.20 AST 35 ALT 48 Alkaline Phosphatase 93 Total Protein 8.1 Albumin 3.6 Globulin 4.5 H Albumin/Globulin Ratio 0.8 L Lipase 161 Patient presents with abdominal pain that he states feels like a pressure. He states he is having bowel movements. His urination is normal. He is not had a fever. His vital signs are stable he is afebrile. His blood work does show a slight leukocytosis of [address] of the abdomen and pelvis is negative. He was given morphine and Zofran for pain in the ED. Patient was counseled on all findings. He did request more pain medication which was given to him. He was also counseled if he continues to have pain he should be reevaluated in 12 to 24 hours. He was amenable to this plan. Patient stable for discharge at this time. Impression: #1 abdominal pain 2. Leukocytosis ED Disposition - Plan for ED Patient: Disposition: Home or Assisted Living Diagnosis: Abdominal pain Instructions: ED Unknown Causes of Abdominal Pain Male Referrals: Care Physician,No Primary [Primary Care Provider] -
--- NOTE | 2020-05-27 01:28 | CT_ITS ---
STUDY: CT ABDOMEN AND PELVIS WITH CONTRAST REASON FOR EXAM: Male, 29 years old. ABD PAIN WORSE TODAY RADIATION DOSAGE (If Supplied By Facility): CTDIvol = ( 36.17 ) mGy, DLP = ( 1990.21 ) mGycm TECHNIQUE: Transaxial images were obtained from the dome of the diaphragm to the symphysis pubis without oral contrast. IV 100mL Isovue-370 was administered. Sagittal and coronal images were reconstructed. Individualized dose optimization techniques were used for this CT. COMPARISON: CT abdomen from 06/04/2014. FINDINGS: The visualized lung bases are unremarkable. The visualized portions of the heart are within normal limits. Normal liver. Normal gallbladder and extrahepatic biliary system. Normal spleen. Normal pancreas. Normal bilateral adrenal glands. Normal right kidney. Normal left kidney. Normal visualized stomach. Normal small intestine. Normal colon. The appendix is visualized and appears normal. Normal abdominal aorta. Normal inferior vena cava. Normal retroperitoneum. Normal urinary bladder. Normal abdominal wall. There are bilateral L5 chronic pars defects. No spondylolisthesis. CT/Abdomen/Pelvis W IV Cont ONLY IMPRESSION: Negative enhanced CT of the abdomen and pelvis. Electronically Signed: Sterling Mclain, at 3:01 EDT Tel , Service support ,
[2020-05-27 01:36] LABS: Absolute Lymphocyte Count 4.62 X10^3/uL (0.83-4.51); Absolute Neutrophil Count 7.6 X10^3/uL (2.0-7.7); Basophil# 0.08 X10^3/uL; Basophil% 0.6 % (0-1); Eosinophil# 0.27 X10^3/uL; Hematocrit 43.7 % (40-54); Lymphocyte # 4.62 X10^3/ul (4.0); Lymphocyte % 34.8 % (19-41); Mean Corpuscular Hgb 27.8 pg (27.0-32.0); Mean Corpuscular Volume 86.7 fL (80-94); Mean Platelet Vol. 11.3 fl (6.2-12.0); Monocyte# 0.67 X10^3/uL; NRBC Flagged by Analyzer 0 % (0-5); Neutrophil # 7.58 X10^3/uL (2.7-7.7); Neutrophil % 57.2 % (47-70); Platelet Count 258 K/mm3 (150-450); RBC Distribution Width CV 12.7 % (11.6-14.6); RBC Distribution Width SD 39.5 fl (35.1-43.9); Red Blood Count 5.04 M/mm3 (4.6-6.2); White Blood Count 13.3 K/mm3 (4.4-11.0)
[2020-05-27] MEDS: Ondansetron 4 MG/2 ML Vial IV (01:42)
[2020-05-27] MEDS: 0.9% Normal Saline 1,000 ML 999 ML IV (01:42)
[2020-05-27] MEDS: Morphine 4 MG/ML Syringe IV (01:43)
[2020-05-27 02:13] LABS: ALB/GLOB Ratio 0.8 RATIO (0.9-2.4); AST(SGOT) 35 U/L (15-37); Alanine Aminotransfer ALT/SGPT 48 U/L (16-61); Albumin, Serum 3.6 g/dL (3.2-5.0); Alkaline Phosphatase 93 U/L (45-117); Anion Gap 6 (5-15); BUN 19 mg/dL (7-18); BUN/Creat Ratio 15.8 RATIO (10-20); Calcium,Total 8.6 mg/dL (8.5-10.1); Chloride 107 mmol/L (98-107); EST Glomerular Filtration Rate 76 mL/min (>60); Est Glom Filt Rate - Afr Amer 92 mL/min (>60); Estimated Creatinine Clearance 112.52 ml/min; Globulin 4.5 g/dL (2.2-4.2); Glucose 128 mg/dL (74-106); Lipase 161 U/L (73-393); Protein, Total 8.1 g/dL (6.4-8.2); Sodium Level 139 mmol/L (136-145)
[2020-05-27 03:00] VITALS: RESP 16
[2020-05-27] MEDS: Morphine 4 MG/ML Syringe IM (03:33)
[2020-05-27 03:54] VITALS: BP 138/83; PULSE 71; RESP 16; O2SAT 97
== END 2020-05-27 04:02 | disposition home or self-care (01) ==
PROVIDERS: Emergency Provider Student in an Organized Health Care Education/Training Program
DX: R10.9 Unspecified abdominal pain (principal); D72.829 Elevated white blood cell count, unspecified; F17.210 Nicotine dependence, cigarettes, uncomplicated; Z88.6 Allergy status to analgesic agent; K21.9 Gastro-esophageal reflux disease without esophagitis
CPT/HCPCS: 74177; 80053; 83690; 85025; 96361; 96372; 96374; 96375; 99284; J7030; J2405

== ENCOUNTER 2020-10-11 10:43 | Emergency (ER) | payer MEDICAID, SELFPAY ==
[2020-10-11 10:43] VITALS: BP 170/87; PULSE 98; RESP 16; TEMP 36.3; O2SAT 100; BMI 47.2
[2020-10-11] MEDS: Mag Hydrox/Al Hydrox/Simeth 30 ML UDC PO (11:15)
[2020-10-11 11:27] LABS: Absolute Lymphocyte Count 2.32 X10^3/uL (0.83-4.51); Absolute Neutrophil Count 6.1 X10^3/uL (2.0-7.7); Basophil# 0.05 X10^3/uL; Basophil% 0.5 % (0-1); Eosinophil# 0.28 X10^3/uL; Hemoglobin 15.1 g/dL (13.0-16.5); Lymphocyte # 2.32 X10^3/ul (4.0); Lymphocyte % 24.8 % (19-41); Mean Corp Hgb Conc 31.5 g/dL (32-36); Mean Corpuscular Volume 85.9 fL (80-94); Mean Platelet Vol. 10.8 fl (6.2-12.0); Monocyte# 0.56 X10^3/uL; NRBC Flagged by Analyzer 0 % (0-5); Neutrophil # 6.12 X10^3/uL (2.7-7.7); Neutrophil % 65.5 % (47-70); Platelet Count 308 K/mm3 (150-450); RBC Distribution Width CV 12.7 % (11.6-14.6); RBC Distribution Width SD 39.2 fl (35.1-43.9); Red Blood Count 5.59 M/mm3 (4.6-6.2); White Blood Count 9.4 K/mm3 (4.4-11.0)
--- NOTE | 2020-10-11 11:31 | NURSING ---
CHEMISTRIES HEMOLIZED
[2020-10-11] MEDS: Famotidine 200 MG/20 ML MDV 20 MG in 0.9% Normal Saline (Pres. free 8 ML 300 MG IV (11:32)
--- NOTE | 2020-10-11 11:52 | ED.DCSUM_ITS ---
History of Present Illness Chief Complaint: Abd Pain Informant: Patient Onset: Days Timing: Continuous, Waxes and wanes Quality: Pain with episodes of sharp pain that dissipate laterally Location: Central upper abdomen that dissipates laterally Current Severity: Mild - 3 4 Maximum Severity: Moderate - 7 8 Worsened by: Nothing specific Relieved by: Nothing Associated Symptoms: Patient has had dark stool and concerned he has a GI bleed Narrative: Patient is a 29-year-old male with history of erosive gastritis/peptic ulcer disease who presents because of dark stool and persistent upper abdominal pain for the past several weeks. The black stool was the last day or 2. On further questioning patient has been taking Pepto-Bismol with no relief. He is taken antacids with no relief. He is on Prilosec. He believes Dr. Thony Mg scoped him several years ago at the [facility]. He denies orthostatic symptoms. He denies HEENT, respiratory or cardiac symptoms. He denies food intolerance. He denies blood in his urine. He denies bruising easily. He is not on an anticoagulant or antiplatelet medicine. Prior similar symptoms: Yes - 2013 Recent Illness/Hospitalization: No - Past Medical History (1) Anxiety Status: Chronic (2) Depression Status: Chronic (3) GERD (gastroesophageal reflux disease) Status: Chronic Past Medical History - Allergies and Home Meds Allergies/Adverse Reactions: Allergies ibuprofen [From Motrin] Adverse Reaction (Verified 10/11/20 10:43) Upset Stomach naproxen Adverse Reaction (Verified 10/11/20 10:43) Upset Stomach Primary Care Physician: Care Physician,No Primary [Primary Care Provider] - Prior records reviewed: Yes Surgical History: - - Left shoulder surgery Lives: Spouse/ Significant Other, With Family Smoking Status: Light Smoker (<10/day) Alcohol: None Drugs: None Review of Systems General: Denies: Fever, Malaise, Sweats Eyes: Denies: Visual changes - bilaterally, Blurred Vision - bilaterally Cardiovascular: Denies: Chest pain, Palpitations Respiratory: Denies: Dyspnea, Cough, Dyspnea on exertion Gastrointestinal: Reports: Abdominal pain, Melena. Denies: Nausea, Vomiting, Diarrhea, Constipation, Hematochezia, -, - Genitourinary: Denies: Hematuria Musculoskeletal: Denies: Myalgias, Arthralgias, Back pain Skin: Denies: Rash Neurological: Denies: Weakness, Parasthesia Hematologic: Denies: Easy bruising, Easy bleeding Physical Exam Vital Signs/Narrative: Vital Signs Temp Pulse Resp BP Pulse Ox 10/11/20 10:43 97.3 F L 98 16 170/87 H 100 Inital Vital Signs reviewed: Yes General: Well nourished, Well developed, No Acute Distress Head: Normocephalic, Atraumatic Eyes: Perrl, EOMI ENT: Moist mucous membranes, No rhinorrhea Neck: Supple, Nontender Cardiovascular: Regular rate, Regular rhythm, No murmurs Respiratory: No distress, CTA bilaterally, Chest nontender Abdomen: Soft, Nondistended, Normal bowel sounds, Tender - Upper abdomen.. Negative for: Guarding, Rebound tenderness Rectal: - - No fissures, fistulas or hemorrhoids. Stool is very dark green- black in color. Back: Nontender, Normal Inspection Extremities: Nontender, No edema Skin: Normal color, No rash Neurological: Alert, Oriented x3, Cranial nerves II-XII grossly intact, Normal Strength, Normal Sensation Psychological: Normal affect, Normal Mood Diagnostic/Tx/Re-eval 10/11/20 10:00 Stool Stool Occult Blood (ILEANA) - Final Laboratory Results 10/11/20 10/11/20 11:15 11:15 WBC 9.4 RBC 5.59 Hgb 15.1 Hct 48.0 MCV 85.9 MCH 27.0 MCHC 31.5 L RDW Std Deviation 39.2 RDW Coeff of Renan 12.7 Plt Count 308 MPV 10.8 Immature Gran % (Auto) 0.200 Neut % (Auto) 65.5 Lymph % (Auto) 24.8 [place] % (Auto) 6.0 Eos % (Auto) 3.0 Baso % (Auto) 0.5 Absolute Neuts (auto) 6.1 Absolute Lymphs (auto) 2.32 Nucleated RBC % 0 Sodium Cancelled Potassium Cancelled Chloride Cancelled Carbon Dioxide Cancelled Anion Gap Cancelled BUN Cancelled Creatinine Cancelled Estim Creat Clear Calc Cancelled Est GFR (MDRD) Af Amer Cancelled Est GFR (MDRD) Non-Af Cancelled BUN/Creatinine Ratio Cancelled Glucose Cancelled Calcium Cancelled - Medical Decision Making Suspect patient's change in stool color is due to Pepto-Bismol. He was treated with IV Pepcid and GI cocktail. CBC/H&H was obtained to rule out anemia. Patient was informed of his blood work. He states he has some cramping pain. Bentyl was ordered and prescription for Bentyl was dispensed. The other pain has improved. ED Disposition - Plan for ED Patient: Disposition: Home or Assisted Living Diagnosis: Acute epigastric pain Prescriptions: Dicyclomine HCl [Bentyl] 20 mg PO TIDAC #20 cap Transmission Status: Pending to [facility] #30 Referrals: Care Physician,No Primary [Primary Care Provider] - 3-5 Days if not improving
[2020-10-11 12:27] VITALS: BP 126/79; PULSE 84; RESP 16; O2SAT 99
[2020-10-11] MEDS: Dicyclomine 10 MG Capsule 20 MG PO (12:27)
== END 2020-10-11 12:28 | disposition home or self-care (01) ==
PROVIDERS: Emergency Provider Emergency Medicine
DX: R10.13 Epigastric pain (principal); K21.9 Gastro-esophageal reflux disease without esophagitis; Z87.11 Personal history of peptic ulcer disease; Z88.6 Allergy status to analgesic agent; F32.9 Major depressive disorder, single episode, unspecified; F41.9 Anxiety disorder, unspecified; F17.200 Nicotine dependence, unspecified, uncomplicated
CPT/HCPCS: 82274; 85025; 96365; 99284; A4216; J3490

== ENCOUNTER 2020-10-12 12:30 | Emergency (ER) | payer MEDICAID, SELFPAY ==
[2020-10-11 10:43] VITALS: BMI 47.2
[2020-10-12 12:31] VITALS: BP 152/90; PULSE 92; RESP 16; TEMP 36.9; O2SAT 100; BMI 51.5
--- NOTE | 2020-10-12 12:49 | RAD_ITS ---
STUDY: X-RAY CHEST REASON FOR EXAM: Male, 29 years old. CHEST PRESSURE, SOB TECHNIQUE: Single AP portable view of the chest. COMPARISON: Comparison is made with prior study dated 10/26/2019. FINDINGS: EKG electrodes are seen. The lungs are clear and expanded. There is no demonstrated pleural abnormality. Normal size heart. Normal mediastinum and aaron. Normal visualized pulmonary arteries. Normal visualized aortic arch and descending thoracic aorta. Normal visualized thoracic spine. Normal visualized ribs, clavicles, and shoulders. There is no demonstrated abnormality of the visualized soft tissue structures of the upper abdomen. RAD/Chest 1 View (Portable) IMPRESSION: Normal x-ray examination of the chest. Electronically Signed: David Escobar, at 13:40 EST , Service support ,
--- NOTE | 2020-10-12 12:49 | EKG12_ITS ---
Test Reason : CHEST PRESSURE Blood Pressure : / mmHG Vent. Rate : 101 BPM Atrial Rate : 101 BPM P-R Int : 156 ms QRS Dur : 084 ms QT Int : 358 ms P-R-T Axes : 072 -03 051 degrees QTc Int : 464 ms Sinus tachycardia Otherwise normal ECG Confirmed by BETTY PEARSON, SHAWN ([id number]), editorial specialist JOHNNY MORAN ([id number]) on 10/16/2020 4:14:24 PM Referred By: STELLA Confirmed By:SHAWN HERNÁNDEZ MD
[2020-10-12 13:11] LABS: Erythrocyte Sedimentation Rate 35 mm/hr (0-15)
[2020-10-12 13:13] LABS: Absolute Lymphocyte Count 2.58 X10^3/uL (0.83-4.51); Absolute Neutrophil Count 8.4 X10^3/uL (2.0-7.7); Basophil# 0.05 X10^3/uL; Basophil% 0.4 % (0-1); Eosinophil# 0.09 X10^3/uL; Eosinophils% 0.8 % (0-5); Hematocrit 44.7 % (40-54); Hemoglobin 14.6 g/dL (13.0-16.5); Lymphocyte # 2.58 X10^3/ul (4.0); Lymphocyte % 21.6 % (19-41); Mean Corp Hgb Conc 32.7 g/dL (32-36); Mean Corpuscular Hgb 27.5 pg (27.0-32.0); Mean Corpuscular Volume 84.2 fL (80-94); Mean Platelet Vol. 10.7 fl (6.2-12.0); Monocyte# 0.82 X10^3/uL; Monocyte% 6.9 % (0-10); NRBC Flagged by Analyzer 0 % (0-5); Neutrophil # 8.38 X10^3/uL (2.7-7.7); Platelet Count 280 K/mm3 (150-450); RBC Distribution Width CV 12.3 % (11.6-14.6); Red Blood Count 5.31 M/mm3 (4.6-6.2)
[2020-10-12] MEDS: Ondansetron 4 MG/2 ML Vial IV (13:19)
[2020-10-12] MEDS: Mag Hydrox/Al Hydrox/Simeth 30 ML UDC PO (13:19)
[2020-10-12] MEDS: 0.9% Normal Saline 1,000 ML 125 ML IV (13:20)
[2020-10-12 13:22] VITALS: BP 178/67; PULSE 79; RESP 18; O2SAT 99
[2020-10-12 13:24] LABS: ALB/GLOB Ratio 0.9 RATIO (0.9-2.4); AST(SGOT) 37 U/L (15-37); Alanine Aminotransfer ALT/SGPT 49 U/L (16-61); Albumin, Serum 4.1 g/dL (3.2-5.0); Alkaline Phosphatase 92 U/L (45-117); Anion Gap 8 (5-15); BUN 15 mg/dL (7-18); BUN/Creat Ratio 14.3 RATIO (10-20); Calcium,Total 9.5 mg/dL (8.5-10.1); Chloride 105 mmol/L (98-107); Creatinine, Serum 1.05 mg/dL (0.70-1.30); EST Glomerular Filtration Rate 89 mL/min (>60); Est Glom Filt Rate - Afr Amer 108 mL/min (>60); Estimated Creatinine Clearance 114.96 ml/min; Globulin 4.6 g/dL (2.2-4.2); Glucose 97 mg/dL (74-106); Lipase 84 U/L (73-393); Potassium 3.5 mmol/L (3.5-5.1); Protein, Total 8.7 g/dL (6.4-8.2); Sodium Level 140 mmol/L (136-145)
--- NOTE | 2020-10-12 13:46 | ED.DCSUM_ITS ---
- ER Visit Summary Date of Service: 10/12/20 Chief Complaint: Chest pain History of Present Illness: The patient is a 29 M with no primary care physician. He reports he has chest pain that began at 11:00 this morning when he lay down. It is a pressure. It is unchanged by exertion. Is worsened by laying down. He reports he is short of breath when he lays flat. He said nausea without vomiting or diaphoresis. Reports that he took Pepto-Bismol without relief. He states that he feels as though he is a gas buildup. States this is similar to when he has had problems with his reflux previously. States that he is on Prilosec. Patient denies any exertional chest pain. No change in dyspnea exertion the past month. He denies calf pain or ankle swelling. He has no personal family history of DVT. No recent travel. He denies any fever, chills, or cough. Physical Examination: Vitals: Stable. Afebrile. General: Well-nourished and well-developed. Head: Normocephalic atraumatic. Neck: Supple, no lymphadenopathy. No JVD. Nontender. Cardiovascular: Regular rate and rhythm. No murmurs. Respiratory: No respiratory distress. Clear to auscultation bilaterally. Abdominal: Soft, nontender, nondistended, normal bowel sounds. No guarding, rebound, or peritoneal signs. Back: Nontender. Extremities: Nontender, no edema. Skin: Normal color, no rash. Neurologic: Alert and oriented ?3. Cranial nerves II through XII are intact. Normal strength and sensation. Psych: Normal affect. Test Results: EKG is sinus tach at [address] changes. No evidence for pericarditis. Troponin is negative. LFTs show total protein of 8.7 globin of 4.6. Lipase is normal. Chem-7 is normal. CBC shows a white count of 12.0. Sed rate is 35. Clinical Impression(s) from Imaging Studies Chest X-Ray 10/12/20 12:49 IMPRESSION: Normal x-ray examination of the chest. Electronically Signed: David Escobar, at 13:40 EST , Service support , Emergency Department Course and Treatment: Patient was treated for GI cocktail he got significant relief from this. When I entered the patient's room his pulse ox was in the 80s while he was sleeping. However, when he was awakened it quickly went back up to 100%. Ambulatory pulse ox is 96% Treatment Plan: I suspect the patient has obstructive sleep apnea. He will be discharged instructions to follow-up the [facility] as soon as possible. He will have his Prilosec increased. He is not placed on NSAIDs as I suspect he has gastritis and is allergic to ibuprofen and naproxen. Return to the emergency department for any worsening symptoms. Disposition: To home in improved and stable condition. Impression: 1. Atypical chest pain. 2. Hypoxia while sleeping only. This note was generated with [employer] dictation software. It may contain incorrect words, spelling, and punctuation that were not noted in review of the chart prior to signing ED Disposition - Plan for ED Patient: Instructions: ED PEPTIC ULCER vs GASTRITIS Prescriptions: Omeprazole [Prilosec] 20 mg PO BID #30 cap Prescription Printed Ondansetron [Zofran Odt] 4 mg PO Q8H PRN PRN #10 tab PRN Reason: Nausea Prescription Printed Referrals: Gina Morrison [NON-STAFF] - 3-5 Days if not improving
[2020-10-12 14:31] VITALS: BP 157/78; PULSE 89; RESP 18; TEMP 36.6; O2SAT 99
== END 2020-10-12 14:49 | disposition home or self-care (01) ==
LOC: ED 13:17
PROVIDERS: Emergency Provider Emergency Medicine
DX: R07.89 Other chest pain (principal); R09.02 Hypoxemia; Z88.6 Allergy status to analgesic agent
CPT/HCPCS: 71045; 80053; 83690; 84484; 85025; 85652; 93005; 99283; J2405

== ENCOUNTER 2022-01-11 12:48 | Emergency (ER) | payer MEDICAID, SELFPAY ==
[2022-01-11 12:49] VITALS: BP 165/89; PULSE 108; RESP 22; TEMP 36.8; O2SAT 99; BMI 47.5
--- NOTE | 2022-01-11 13:14 | EKG12_ITS ---
Test Reason : CP Blood Pressure : / mmHG Vent. Rate : 102 BPM Atrial Rate : 102 BPM P-R Int : 152 ms QRS Dur : 082 ms QT Int : 354 ms P-R-T Axes : 062 -19 042 degrees QTc Int : 461 ms Sinus tachycardia Otherwise normal ECG Confirmed by BETTY PEARSON, SHAWN ([id number]), copy editor TERESITA JORGENSEN ([id number]) on 01/13/2022 10:44:11 AM Referred By: SYLVIA/KEMAR Confirmed By:SHAWN HERNÁNDEZ MD
--- NOTE | 2022-01-11 13:19 | RAD_ITS ---
HISTORY: chest pain EXAMINATION/TECHNIQUE: XR Chest 2 Views: COMPARISON: October 12, 2020 FINDINGS: LINES/DEVICES: None. LUNGS: No airspace consolidation. Unremarkable interstitium. No effusion. No pneumothorax. MEDIASTINUM: No cardiomegaly. MUSCULOSKELETAL: No acute osseous finding. RAD/Chest PA and Lateral IMPRESSION: No evidence of acute cardiopulmonary process. at 1402 Reported and signed by: Tony Saldana MD Electronically Signed: Tony Saldana MD at 14:01 EST ,
--- NOTE | 2022-01-11 13:21 | EDS_ITS ---
HPI <ISAIAS TOBAR - Last Filed: 01/11/22 21:50> History of Present Illness Chief Complaint: Chest Pain Informant: patient Onset/Context/Timing Onset: Today and Hours (2) Activity at onset: sudden Timing: Continuous Quality: Positive for Sharp Location: Left Parasternal Current Severity: 3/10 Associated Symptoms: Positive for Dyspnea, Cough and Lightheadedness Narrative Narrative: Patient presents secondary to chest pain that occurred 2 hours prior to arrival while taking out the trash. Patient describes the pain as a sharp left parasternal pain with radiation to the left scapular area. Patient reports lightheadedness and shortness of breath with episode. Patient stated pain was improved by moving his left arm up. Patient states the pain is now 3 out of 10 and describes more as a tightness with difficulty getting a deep breath. Patient reports 2-1/2-week illness with cough and chest congestion. Patient had a fever for the first 3 days of the illness, but that has resolved. Patient now has productive yellow cough. Patient was tested for Covid on Thursday, January [facility] at [facility], which was negative. Patient states he last took Mucinex yesterday. Denies any other drug use, aside from marijuana. Denies family history of cardiac problems. CVD Risk Factors: Positive for Smoking PFSH <ISAIAS TOBAR - Last Filed: 01/11/22 21:50> PFSH Medical History no medical history Home Medications NK 01/11/22 [History Last Taken Unknown] Allergy/AdvReac Type Severity Reaction Status Date / Time ibuprofen [From Motrin] AdvReac Upset Verified 01/11/22 12:48 Stomach naproxen AdvReac Upset Verified 01/11/22 12:48 Stomach Family History (Updated 01/11/22 @ 13:54 by ISAIAS TOBAR) Mother Hypertension Surgical History no surgical history Social History (Updated 01/11/22 @ 13:54 by ISAIAS TOBAR) Smoking Status: Current every day smoker tobacco type: cigarettes substance use type: marijuana ROS <ISAIAS TOBAR - Last Filed: 01/11/22 21:50> ROS ED Eyes Eyes: Denies none ENT ENT ED: Denies ear pain, rhinorrhea or sore throat Cardiovascular Cardiovascular: Reports systems reviewed and no addt'l complaints, except as documented and lightheadedness Respiratory/Chest Respiratory/Chest: Reports chest tightness, cough, productive cough, shortness of breath at rest and sputum Gastrointestinal Gastrointestinal: Denies abdominal pain, nausea or vomiting Genitourinary Genitourinary ED: Denies dysuria or hematuria Musculoskeletal Musculoskeletal: Denies myalgias Integumentary Denies rash Neurologic Neurologic: Denies headache(s) or weakness Psychiatric Psychiatric: Denies anxiety or depression Endocrine Endocrinology: Denies polydipsia or polyuria Hematologic/Lymphatic Hematologic/Lymphatic: Denies easy bruising EXAM <ISAIAS TOBAR - Last Filed: 01/11/22 21:50> Physical Exam Const Vital Signs: 01/11/22 12:49 01/11/22 13:10 01/11/22 13:30 Temperature 98.2 F Temperature Source Temporal Pulse Rate 108 H 100 Respiratory Rate 22 H 19 H Respiratory Effort Normal Non-Labored Blood Pressure 165/89 H Blood Pressure Mean 114 Pulse Ox 99 Oxygen Delivery Method Room Air 01/11/22 14:31 01/11/22 15:04 Temperature Temperature Source Pulse Rate 95 90 Respiratory Rate 14 16 Respiratory Effort Blood Pressure 157/84 H 156/88 H Blood Pressure Mean 108 110 Pulse Ox 94 93 Oxygen Delivery Method Room Air Room Air Positive well nourished and well developed General Appearance ED: well developed HEENT normocephalic and atraumatic Eyes PERRL and EOMs intact bilaterally Neck no lymphadenopathy and supple Chest Wall inspection of chest normal and palpation of chest normal Chest: Negative for tenderness Resp normal respiratory effort Effort and Inspection: Negative for respiratory distress or pain with movement Auscultation: diminished lung sounds Cardio regular rate and regular rhythm GI normal to inspection, nondistended, normoactive bowel sounds Extremity normal to inspection, no calf tenderness and no pedal edema Neuro oriented x3 Sensorium / Orientation: awake and alert Psych mental status grossly normal Skin no rashes or lesions noted <Dr. Cheri Beck MD - Last Filed: 01/11/22 16:39> Physical Exam Const Vital Signs: 01/11/22 12:49 01/11/22 13:10 01/11/22 13:30 Temperature 98.2 F Temperature Source Temporal Pulse Rate 108 H 100 Respiratory Rate 22 H 19 H Respiratory Effort Normal Non-Labored Blood Pressure 165/89 H Blood Pressure Mean 114 Pulse Ox 99 Oxygen Delivery Method Room Air 01/11/22 14:31 01/11/22 15:04 Temperature Temperature Source Pulse Rate 95 90 Respiratory Rate 14 16 Respiratory Effort Blood Pressure 157/84 H 156/88 H Blood Pressure Mean 108 110 Pulse Ox 94 93 Oxygen Delivery Method Room Air Room Air MDM <ISAIAS TOBAR - Last Filed: 01/11/22 21:50> [facility] Narrative Medical decision making narrative: DuoNeb and aspirin ordered. CBC, BMP, troponin, D-dimer, and rapid flu ordered. EKG completed at triage. Chest x-ray ordered. Lab Data Labs: Laboratory Results - last 24 hr 01/11/22 01/11/22 01/11/22 13:00 13:00 13:00 WBC 13.3 H RBC 5.44 Hgb 15.0 Hct 46.3 MCV 85.1 MCH 27.6 MCHC 32.4 RDW Std Deviation 40.0 RDW Coeff of Renan 13.0 Plt Count 225 MPV 11.8 Immature Gran % (Auto) 0.500 Neut % (Auto) 67.0 Lymph % (Auto) 23.0 [place] % (Auto) 7.3 Eos % (Auto) 1.7 Baso % (Auto) 0.5 Absolute Neuts (auto) 8.9 H Absolute Lymphs (auto) 3.05 Nucleated RBC % 0 D-Dimer Quant (PE/DVT) 0.34 Sodium 136 Potassium 4.3 Chloride 104 Carbon Dioxide 27.0 Anion Gap 5 BUN 11 Creatinine 1.14 Estim Creat Clear Calc 116.33 Est GFR (MDRD) Af Amer 97 Est GFR (MDRD) Non-Af 80 BUN/Creatinine Ratio 9.6 L Glucose 92 Calcium 9.4 Troponin I High Sens 9 01/11/22 15:10 WBC RBC Hgb Hct MCV MCH MCHC RDW Std Deviation RDW Coeff of Renan Plt Count MPV Immature Gran % (Auto) Neut % (Auto) Lymph % (Auto) [place] % (Auto) Eos % (Auto) Baso % (Auto) Absolute Neuts (auto) Absolute Lymphs (auto) Nucleated RBC % D-Dimer Quant (PE/DVT) Sodium Potassium Chloride Carbon Dioxide Anion Gap BUN Creatinine Estim Creat Clear Calc Est GFR (MDRD) Af Amer Est GFR (MDRD) Non-Af BUN/Creatinine Ratio Glucose Calcium Troponin I High Sens 8 Radiography Chest X-Ray - ED: 2 View and No Infiltrates Diagnostic Testing: Clinical Impression(s) from Imaging Studies Chest X-Ray 01/11/22 13:19 IMPRESSION: No evidence of acute cardiopulmonary process. at 1402 Reported and signed by: Tony Saldana MD Electronically Signed: Tony Saldana MD at 14:01 EST Reading Location ID and State: [facility] / [place] Tel , Service support , EKG Initial EKG: Attestation: I personally reviewed and interpreted this EKG as follows: Comments: Sinus tachycardia with a rate of 102 without evidence of ischemia. <Dr. Cheri Beck MD - Last Filed: 01/11/22 16:39> [facility] Lab Data Labs: Laboratory Results - last 24 hr 01/11/22 01/11/22 01/11/22 13:00 13:00 13:00 WBC 13.3 H RBC 5.44 Hgb 15.0 Hct 46.3 MCV 85.1 MCH 27.6 MCHC 32.4 RDW Std Deviation 40.0 RDW Coeff of Renan 13.0 Plt Count 225 MPV 11.8 Immature Gran % (Auto) 0.500 Neut % (Auto) 67.0 Lymph % (Auto) 23.0 Salem % (Auto) 7.3 Eos % (Auto) 1.7 Baso % (Auto) 0.5 Absolute Neuts (auto) 8.9 H Absolute Lymphs (auto) 3.05 Nucleated RBC % 0 D-Dimer Quant (PE/DVT) 0.34 Sodium 136 Potassium 4.3 Chloride 104 Carbon Dioxide 27.0 Anion Gap 5 BUN 11 Creatinine 1.14 Estim Creat Clear Calc 116.33 Est GFR (MDRD) Af Amer 97 Est GFR (MDRD) Non-Af 80 BUN/Creatinine Ratio 9.6 L Glucose 92 Calcium 9.4 Troponin I High Sens 9 01/11/22 15:10 WBC RBC Hgb Hct MCV MCH MCHC RDW Std Deviation RDW Coeff of Renan Plt Count MPV Immature Gran % (Auto) Neut % (Auto) Lymph % (Auto) [place] % (Auto) Eos % (Auto) Baso % (Auto) Absolute Neuts (auto) Absolute Lymphs (auto) Nucleated RBC % D-Dimer Quant (PE/DVT) Sodium Potassium Chloride Carbon Dioxide Anion Gap BUN Creatinine Estim Creat Clear Calc Est GFR (MDRD) Af Amer Est GFR (MDRD) Non-Af BUN/Creatinine Ratio Glucose Calcium Troponin I High Sens 8 Radiography Diagnostic Testing: Clinical Impression(s) from Imaging Studies Chest X-Ray 01/11/22 13:19 IMPRESSION: No evidence of acute cardiopulmonary process. at 1402 Reported and signed by: Tony aSldana MD Electronically Signed: Tony Saldana MD at 14:01 EST Reading Location ID and State: [facility] / [place] Tel , Service support , Treatment and Re-Evaluation Comments:: Patient seen and evaluated with MANAGEMENT ADVISOR student. Patient presents with day history of URI symptoms with cough and congestion. He had 3 days of fever. He tested negative for Covid less than 1 week ago. Patient presents today secondary to left chest pain radiating to the left scapula when taking the trash to the curb. He does report feeling lightheaded with exertion. Patient sitting upright in bed no acute distress. Nontoxic-appearing. Head neck examination unremarkable. Heart regular rate and rhythm. Lung sounds grossly clear with decreased air movement. Abdomen is soft and nontender. No calf tenderness or edema. EKG, lab work, chest x-ray obtained. Patient given aerosols. Patient's lab work largely unremarkable. White count slightly elevated at 13.3. D-dimer negative and troponin x2 negative. Patient discharged with albuterol MDI. Discharge Plan Triage Chief Complaint: Chest Pain ED Provider: Cheri Beck Dx/Rx/DC Orders Clinical Impression: Viral syndrome Instructions: ED Inhaler Use, ED URI, Viral, No Abx (Adult) Prescriptions: No Action NK RF: 0 Primary Care Provider: Care Physician,No Primary Referrals: Lauri Trejo MD [STAFF PHYSICIAN] - 1-2 Weeks Care Physician,No Primary [Primary Care Provider] - Disposition Disposition: Home, Self Care Discharge Date/Time: 01/11/22 16:13
[2022-01-11] MEDS: Ipratropium/Albuterol Sulfate 3 ML AMPUL.NEB INHALATION (13:25)
[2022-01-11 13:30] VITALS: PULSE 100; RESP 19
[2022-01-11] MEDS: Aspirin 81 MG TAB.CHEW 324 MG PO (13:33)
[2022-01-11 13:35] LABS: Absolute Lymphocyte Count 3.05 X10^3/uL (0.83-4.51); Absolute Neutrophil Count 8.9 X10^3/uL (2.0-7.7); Basophil# 0.06 X10^3/uL; Basophil% 0.5 % (0-1); Eosinophil# 0.22 X10^3/uL; Eosinophils% 1.7 % (0-5); Hematocrit 46.3 % (40-54); Lymphocyte # 3.05 X10^3/ul (0.83-4.51); Mean Corp Hgb Conc 32.4 g/dL (32-36); Mean Corpuscular Hgb 27.6 pg (27.0-32.0); Mean Corpuscular Volume 85.1 fL (80-94); Mean Platelet Vol. 11.8 fl (6.2-12.0); Monocyte# 0.97 X10^3/uL; Monocyte% 7.3 % (0-10); NRBC Flagged by Analyzer 0 % (0-5); Neutrophil # 8.91 X10^3/uL (2.7-7.7); POSITIVE COUNT YES; Platelet Count 225 K/mm3 (150-450); Red Blood Count 5.44 M/mm3 (4.6-6.2); White Blood Count 13.3 K/mm3 (4.4-11.0)
[2022-01-11 13:43] LABS: D-Dimer Quantitative (DVT/PE) 0.34 FEU/ug/m (0.27-0.49)
[2022-01-11 13:59] LABS: Anion Gap 5 (5-15); BUN 11 mg/dL (7-18); BUN/Creat Ratio 9.6 RATIO (10-20); Calcium,Total 9.4 mg/dL (8.5-10.1); Chloride 104 mmol/L (98-107); Creatinine, Serum 1.14 mg/dL (0.70-1.30); EST Glomerular Filtration Rate 80 mL/min (>60); Est Glom Filt Rate - Afr Amer 97 mL/min (>60); Estimated Creatinine Clearance 116.33 ml/min; Glucose 92 mg/dL (74-106); Potassium 4.3 mmol/L (3.5-5.1); Sodium Level 136 mmol/L (136-145); Troponin-I HS 9 pg/mL (3.0-78.0)
[2022-01-11 14:08] LABS: Differential Indicated SCAN CRITERIA MET
[2022-01-11 14:31] VITALS: BP 157/84; PULSE 95; RESP 14; O2SAT 94
[2022-01-11 14:37] VITALS: O2SAT 96
[2022-01-11 15:04] VITALS: BP 156/88; PULSE 90; RESP 16; O2SAT 93
[2022-01-11 15:32] LABS: Troponin-I HS 8 pg/mL (3.0-78.0)
== END 2022-01-11 16:13 | disposition home or self-care (01) ==
PROVIDERS: Emergency Provider Emergency Medicine; Visit Provider Emergency Medicine
DX: B34.9 Viral infection, unspecified (principal); R06.00 Dyspnea, unspecified; F17.210 Nicotine dependence, cigarettes, uncomplicated; R42 Dizziness and giddiness; R05.9 Cough, unspecified; F12.90 Cannabis use, unspecified, uncomplicated
CPT/HCPCS: 36415; 71046; 80048; 84484; 85025; 85379; 87804; 93005; 94640; 99284; J7040; A4216

== ENCOUNTER 2023-01-18 09:23 | Emergency (ER) | payer MEDICAID, SELFPAY ==
[2023-01-18 09:24] VITALS: BP 145/78; PULSE 72; RESP 18; TEMP 36.6; O2SAT 99; BMI 45.1
--- NOTE | 2023-01-18 09:41 | EDS_ITS ---
HPI HPI - GI History of Present Illness Chief Complaint: Chest Pain Informant: patient Narrative Narrative: Patient presents with some abdominal cramping. Patient states that on this past he started with sulfur burps. He had been eating a lot more sea pugh recently. He does have a history of sulfur burps. He also has a history of GERD but is not on any medicine for it. He is not having any pain into his chest. He has pain mostly in the epigastrium and a little bit in the right upper quadrant. The pain and cramping started just yesterday. He is still having the sulfur smell to his burps. He also started with some diarrhea yesterday. It is very soft but not watery. No blood is ever been seen. He has never been nauseated or vomited. No shortness of breath or chest pain. No prior surgeries in the abdomen. No known sick contacts. [facility] Medical History Morbid obesity Home Medications dicyclomine 20 mg tablet 20 mg PO TID PRN cramps #15 tabs 01/18/23 [Rx Last Taken Unknown] esomeprazole magnesium 20 mg capsule,delayed release (Nexium) 20 mg PO DAILY #30 caps 01/18/23 [Rx Last Taken Unknown] Allergy/AdvReac Type Severity Reaction Status Date / Time ibuprofen [From Motrin] AdvReac Upset Verified 01/18/23 09:23 Stomach naproxen AdvReac Upset Verified 01/18/23 09:23 Stomach Family History Mother Hypertension Social History Smoking Status: Current every day smoker tobacco type: cigarettes substance use type: marijuana ROS ROS ED Constitutional Constitutional ED: Denies chills or fever(s) ENT ENT ED: Denies rhinorrhea or sore throat Cardiovascular Cardiovascular: Denies chest pain or palpitations Respiratory/Chest Respiratory/Chest: Denies cough or dyspnea Gastrointestinal Gastrointestinal: Reports abdominal pain and diarrhea; Denies constipation, melena, nausea or vomiting Genitourinary Genitourinary ED: Denies hematuria Musculoskeletal Musculoskeletal: Denies myalgias Integumentary Denies rash Neurologic Neurologic: Denies headache(s) Endocrine Endocrinology: Denies polydipsia or polyuria Hematologic/Lymphatic Hematologic/Lymphatic: Denies easy bleeding or easy bruising Allergic/Immunologic Allergic/Immunologic ED: Denies urticaria EXAM Physical Exam Narrative Exam Narrative: Patient is awake alert. He is laying on bed looks nontoxic. He walked in the room without difficulty. HEENT shows moist mucous membranes Eyes show no jaundice/icterus Neck shows no pain with range of motion Lungs are clear. No pain with a deep breath. Heart is regular. Peripheral pulses are equal. Abdomen is soft but obese. Bowel sounds are normal to slightly increased. There may be just a hint of discomfort with palpation in the epigastric or right upper quadrant. Patient states that sore I do not see objective pain or rebound or guarding but it is somewhat sore in these areas. No pain anywhere else. Extremities show no notable edema. There is some abrasions on the lower extremities but no sign of infection. Neurologically he is awake alert and appropriate. Const Vital Signs: 01/18/23 09:24 Temperature 97.8 F Temperature Source Temporal Pulse Rate 72 Respiratory Rate 18 Blood Pressure 145/78 H Blood Pressure Mean 100 Pulse Ox 99 Oxygen Delivery Method Room Air MDM MDM MDM Narrative Medical decision making narrative: Patient CBC including white count hemoglobin and platelets are normal. Fernanda ctrolytes are overall normal. Glucose is well controlled. Liver function test is normal. Lipase is normal. Patient does feel a little bit better with the meds. He is not having the cramping now. His abdomen is soft is not tender. He still having the sulfur burps. I do not think we need to do a CT scan of his abdomen. He has improved with mild treatment. Its not tender. He has no fevers. No white count. No acute laboratory abnormalities. His symptoms are most consistent with acid type disease. We will get him started on treatment for this. We did discuss that if he develops worsening pain, vomiting, fever, pain in his back or blood in the stool or any other complaints he should return. Lab Data Labs: Laboratory Results - last 24 hr 01/18/23 01/18/23 09:42 09:42 WBC 8.9 RBC 5.72 Hgb 15.7 Hct 50.1 MCV 87.6 MCH 27.4 MCHC 31.3 L RDW Std Deviation 39.7 RDW Coeff of Renan 12.4 Plt Count 265 MPV 10.3 Immature Gran % (Auto) 0.200 Neut % (Auto) 64.1 Lymph % (Auto) 26.7 Cocke % (Auto) 6.2 Eos % (Auto) 2.0 Baso % (Auto) 0.8 Absolute Neuts (auto) 5.7 Absolute Lymphs (auto) 2.38 Nucleated RBC % 0 Sodium 142 Potassium 4.6 Chloride 107 Carbon Dioxide 28.0 Anion Gap 7 BUN 14 Creatinine 1.12 Estim Creat Clear Calc 117.33 Est GFR (MDRD) Af Amer 98 Est GFR (MDRD) Non-Af 81 BUN/Creatinine Ratio 12.5 Glucose 103 Calcium 9.0 Total Bilirubin 0.30 AST 24 ALT 28 Alkaline Phosphatase 90 Total Protein 8.1 Albumin 3.7 Globulin 4.4 H Albumin/Globulin Ratio 0.8 L Lipase 235 Discharge Plan Triage Chief Complaint: Chest Pain ED Provider: Shaka Finney Dx/Rx/DC Orders Clinical Impression: Abdominal pain, Peptic ulcer disease Instructions: Abdominal Pain, ED Gastritis Ulcer No Abx Prescriptions: New esomeprazole magnesium [Nexium] 20 mg capsule,delayed release(DR/EC) 20 mg PO DAILY Qty: 30 0RF dicyclomine 20 mg tablet 20 mg PO TID PRN (Reason: cramps) Qty: 15 0RF Primary Care Provider: Care Physician,No Primary Referrals: Kaitlynn Cummings MD [Med Staff - Active Staff] - 3-5 Days if not improving Care Physician,No Primary [Primary Care Provider] - Disposition Disposition: Home, Self Care
[2023-01-18] MEDS: Dicyclomine 10 MG Capsule 20 MG PO (09:50)
[2023-01-18] MEDS: 0.9% Normal Saline 1,000 ML 1000 ML IV (09:50)
[2023-01-18 09:52] LABS: Absolute Lymphocyte Count 2.38 X10^3/uL (0.83-4.51); Absolute Neutrophil Count 5.7 X10^3/uL (2.0-7.7); Basophil# 0.07 X10^3/uL; Basophil% 0.8 % (0-1); Eosinophil# 0.18 X10^3/uL; Hematocrit 50.1 % (40-54); Hemoglobin 15.7 g/dL (13.0-16.5); Lymphocyte # 2.38 X10^3/ul (0.83-4.51); Lymphocyte % 26.7 % (19-41); Mean Corp Hgb Conc 31.3 g/dL (32-36); Mean Corpuscular Hgb 27.4 pg (27.0-32.0); Mean Corpuscular Volume 87.6 fL (80-94); Mean Platelet Vol. 10.3 fl (6.2-12.0); Monocyte# 0.55 X10^3/uL; Monocyte% 6.2 % (0-10); NRBC Flagged by Analyzer 0 % (0-5); Neutrophil # 5.72 X10^3/uL (2.7-7.7); Neutrophil % 64.1 % (47-70); Platelet Count 265 K/mm3 (150-450); RBC Distribution Width CV 12.4 % (11.6-14.6); RBC Distribution Width SD 39.7 fl (35.1-43.9); Red Blood Count 5.72 M/mm3 (4.6-6.2); White Blood Count 8.9 K/mm3 (4.4-11.0)
[2023-01-18 10:06] LABS: ALB/GLOB Ratio 0.8 RATIO (0.9-2.4); AST(SGOT) 24 U/L (15-37); Alanine Aminotransfer ALT/SGPT 28 U/L (16-61); Albumin, Serum 3.7 g/dL (3.2-5.0); Alkaline Phosphatase 90 U/L (45-117); Anion Gap 7 (5-15); BUN 14 mg/dL (7-18); BUN/Creat Ratio 12.5 RATIO (10-20); Chloride 107 mmol/L (98-107); Creatinine, Serum 1.12 mg/dL (0.70-1.30); EST Glomerular Filtration Rate 81 mL/min (>60); Est Glom Filt Rate - Afr Amer 98 mL/min (>60); Estimated Creatinine Clearance 117.33 ml/min; Globulin 4.4 g/dL (2.2-4.2); Glucose 103 mg/dL (74-106); Lipase 235 U/L (73-393); Potassium 4.6 mmol/L (3.5-5.1); Protein, Total 8.1 g/dL (6.4-8.2); Sodium Level 142 mmol/L (136-145)
[2023-01-18] MEDS: Mag Hydrox/Al Hydrox/Simeth 30 ML UDC PO (10:54)
== END 2023-01-18 11:03 | disposition home or self-care (01) ==
PROVIDERS: Emergency Provider Emergency Medicine; Visit Provider Emergency Medicine
DX: K27.9 Peptic ulcer, site unspecified, unspecified as acute or chronic, without hemorrhage or perforation (principal); F17.210 Nicotine dependence, cigarettes, uncomplicated; R10.9 Unspecified abdominal pain
CPT/HCPCS: 80053; 83690; 85025; 99284; J7030; A4216; J3490

== ENCOUNTER 2023-05-14 14:50 | Emergency (ER) | payer MEDICAID, SELFPAY ==
[2023-05-14 14:51] VITALS: BP 174/93; PULSE 71; RESP 18; TEMP 36.2; O2SAT 97; BMI 39.9
--- NOTE | 2023-05-14 15:20 | ED.VIS.DENTA ---
HPI History of Present Illness Chief Complaint: Dental Narrative Narrative: 32-year-old male past medical history of anxiety and depression, states that about a week ago he had a tooth extraction performed in his right upper jaw by dentist in [place]. He was having pain and has been on penicillin for the last week. He complains of right cheek pain and facial pain. He denies any fevers or chills. He states that he was only sent home with Tylenol because he cannot take NSAIDs for pain. He returned to the dentist today and states that he had a dry socket that was scraped out today. He has been having increased pain since then. He states he called the dentist and told him that he was having pain, and was told that he was unsure why the patient was having so much pain. Patient presents to the emergency department for evaluation of the pain in his right upper jaw and right cheek. [facility] Medical History Morbid obesity Home Medications tramadol 50 mg tablet 50 mg PO Q6H PRN pain #12 tabs 05/14/23 [Rx Last Taken Unknown] Allergy/AdvReac Type Severity Reaction Status Date / Time ibuprofen [From Motrin] AdvReac Upset Verified 01/18/23 09:23 Stomach naproxen AdvReac Upset Verified 01/18/23 09:23 Stomach Family History Mother Hypertension Social History Smoking Status: Light Smoker (<10/day) substance use type: marijuana ROS ROS ED ROS Narrative Constitutional: No fever, no chills. HEENT: No sore throat. No neck pain. No loss of vision. No rhinorrhea. Right cheek/facial pain, right upper jaw pain. Cardiovascular: No chest pain. No palpitations. No pedal edema. Respiratory: No cough, no shortness of breath. Abdominal: No abdominal pain. No nausea. No vomiting. Genitourinary: No dysuria. No hematuria. Musculoskeletal: No myalgias. No arthralgias. Neurologic: No headaches. No dizziness. No lightheadedness. Skin: No rash. No change in color. Psychiatric: No depression. No anxiety. EXAM Physical Exam Narrative Exam Narrative: Afebrile. Vital signs noted. Nontoxic-appearing. HEENT: Normocephalic. Atraumatic. PERRL, EOMI. Neck soft and supple. No point tenderness or step off. No erythema of right cheek. No fluctuance. Positive tooth extraction right upper jaw around tooth #5, no active bleeding. No drooling or trismus. Airway patent. Cardiovascular: Regular rate and rhythm. No murmurs, rubs, or gallops appreciated. Respiratory: No tachypnea. Lungs clear to auscultation bilaterally. Gastrointestinal: Abdomen soft, nontender, with normoactive bowel sounds. No rebound or guarding. Neurological: Awake. Alert. Nonfocal, nonlateralizing. Skin: No rash. Normal color. No pallor. Musculoskeletal: No pedal edema. Full range of motion extremities. Const Vital Signs: 05/14/23 14:51 Temperature 97.1 F L Temperature Source Temporal Pulse Rate 71 Respiratory Rate 18 Blood Pressure 174/93 H Blood Pressure Mean 120 Pulse Ox 97 Oxygen Delivery Method Room Air MDM MDM MDM Narrative Medical decision making narrative: Patient has already been on antibiotics. I reviewed his prior records. He will be given a tramadol tablet here in the emergency department and I will write him a prescription for 3 days / 12 tablets. He was told that narcotic pain medication should come from the dentist who performed his tooth extraction. He had stated that he was given regular Tylenol to take. However, in review of his [facility] report, he has 2 prescriptions for 2 days worth of Tylenol 3. The last was written 3 days ago for 2 days / 12 tablets. He will take [id number] Tylenol as well as needed and follow-up with the dentist who performed his tooth extraction. I do not feel that any laboratory work or imaging is indicated and I do not feel that he requires observation or transfer because I do not feel that he has a deep-rooted abscess, and additionally he was seen by the dentist today. Disposition is discharged home in stable condition. Discharge Plan Triage Chief Complaint: Dental ED Provider: Mikael Alvarenga Dx/Rx/DC Orders Clinical Impression: Pain, dental, Status post tooth extraction Instructions: ED Dental Pain, ED Pain, Acute, Uncertain Cause Prescriptions: New tramadol 50 mg tablet 50 mg PO Q6H PRN (Reason: pain) Qty: 12 0RF Primary Care Provider: Care Physician,No Primary Referrals: Care Physician,No Primary [Primary Care Provider] - Activity Restrictions/Additional Instructions: Follow-up with the dentist that did your extraction in the next few days. Disposition Disposition: Home, Self Care
[2023-05-14] MEDS: traMADol 50 MG Tablet PO (15:30)
== END 2023-05-14 15:33 | disposition home or self-care (01) ==
PROVIDERS: Emergency Provider Emergency Medicine; Visit Provider Emergency Medicine
DX: K08.89 Other specified disorders of teeth and supporting structures (principal); F17.200 Nicotine dependence, unspecified, uncomplicated; K08.409 Partial loss of teeth, unspecified cause, unspecified class
CPT/HCPCS: 99283

== ENCOUNTER 2024-09-12 09:38 | Emergency (ER) | payer MEDICAID, SELFPAY ==
[2024-09-12 09:40] VITALS: BP 152/81; PULSE 71; RESP 18; TEMP 37; O2SAT 99; BMI 42.0
--- NOTE | 2024-09-12 09:50 | RAD_ITS ---
STUDY: X-RAY - RIGHT HAND REASON FOR EXAM: Male, 33 years old. Fifth metacarpal pain following injury. TECHNIQUE: 4 view(s) of the hand. COMPARISON: Comparison is made with prior study dated December 13, 2014. FINDINGS: Normal radiocarpal articulation. Normal distal radioulnar joint. Normal visualized carpal bones. Normal carpal articulations Normal carpometacarpal articulation of the thumb. Normal second through fifth carpometacarpal joints. There is evidence of a nondisplaced transverse fracture through the midshaft of the fifth metacarpal with overlying soft tissue swelling. Normal metacarpophalangeal joint of the thumb. Normal interphalangeal joint of the thumb. Normal proximal and distal phalanges of the thumb. Normal metacarpophalangeal joints of the second through fifth fingers. Normal proximal and distal interphalangeal joints of the second through fifth fingers. Normal phalanges of the second through fifth fingers. Soft tissue swelling. RAD/Hand Min 3 Views IMPRESSION: Nondisplaced transverse fracture through the midportion of the fifth metacarpal with overlying soft tissue swelling. Electronically Signed: David Escobar MD at 10:14 EST ,
--- NOTE | 2024-09-12 09:50 | EDS_ITS ---
HPI History of Present Illness Chief Complaint: Upper Extremity Injury Detail of Chief Complaint: Injury to right hand Informant: patient Narrative Narrative: Patient presents to the emergency department complaint of injury to his right hand that occurred 4 days ago. Patient states that he got angry and punched a wall. He is right-hand dominant. Continues to have pain and swelling. [facility] Medical History Morbid obesity Home Medications ?Medication ?Instructions ?Recorded ?Last Taken ?Type tramadol 50 mg tablet 50 mg PO Q6H PRN pain #12 tabs 05/14/23 Unknown Rx Allergy/AdvReac Type Severity Reaction Status Date / Time ibuprofen (From Motrin) AdvReac Upset Verified 09/12/24 09:38 Stomach naproxen AdvReac Upset Verified 09/12/24 09:38 Stomach Family History Mother Hypertension Social History Smoking Status: Light Smoker (<10/day) substance use type: marijuana ROS ROS ED Review of Systems ROS Unobtainable: other Constitutional Constitutional ED: Reports lethargy; Denies chills, fever(s), sweats or weight loss Eyes Eyes: Denies blurry vision, change in vision or diplopia ENT ENT ED: Denies rhinorrhea or sore throat Cardiovascular Cardiovascular: Denies chest pain, orthopnea or racing heartbeat Respiratory/Chest Respiratory/Chest: Denies cough, dyspnea, dyspnea on exertion, orthopnea or sputum Gastrointestinal Gastrointestinal: Denies abdominal pain, diarrhea, nausea or vomiting Genitourinary Genitourinary ED: Denies dysuria, hematuria or urinary frequency Musculoskeletal Musculoskeletal: Reports other Details: Right hand injury/pain ; Denies arthralgias, back pain, myalgias or neck pain Integumentary Denies abscess, Abrasions or rash Neurologic Neurologic: Denies headache(s) or weakness Psychiatric Psychiatric: Denies anxiety, depression or suicidal thoughts Endocrine Endocrinology: Denies polydipsia, polyphagia or polyuria Hematologic/Lymphatic Hematologic/Lymphatic: Denies easy bleeding, easy bruising or lymphadenopathy Allergic/Immunologic Allergic/Immunologic ED: Denies mouth swelling, tongue swelling or urticaria EXAM Physical Exam Const Vital Signs: 09/12/24 09:40 Temperature 98.6 F Temperature Source Oral Pulse Rate 71 Respiratory Rate 18 Blood Pressure 152/81 H Blood Pressure Mean 104 Pulse Ox 99 Oxygen Delivery Method Room Air Positive well nourished and well developed General Appearance ED: well developed and NAD HEENT Reports TM's clear and moist mucous membranes normocephalic and atraumatic; Negative for trauma or tenderness Tympanic Membrane ED: Yes TM's clear Eyes PERRL and EOMs intact bilaterally General Eye ED: Negative for pale conjunctiva or scleral icterus Neck no lymphadenopathy, supple and no JVD General: Negative for tenderness Chest Wall inspection of chest normal and palpation of chest normal Chest: Negative for tenderness Resp normal respiratory effort and clear to auscultation bilaterally Effort and Inspection: Negative for respiratory distress or pain with movement Auscultation: Negative for rhonchi, wheezes or diminished lung sounds Cardio regular rate, regular rhythm, S1 normal heart sound, S2 normal heart sound and no murmurs Peripheral Pulses: pulses 2+ throughout GI normal to inspection, nondistended, normoactive bowel sounds, soft to palpation, non-tender, non-distended and no masses Back/Spine no CVA tenderness and no thoracic nor lumbar tenderness Extremity Extremity Narrative: Right hand-patient has obvious soft tissue swelling to the dorsal lateral aspect of the hand with pain over the fifth metacarpal. Decreased range of motion flexion extension at the fifth MCP joint. Patient has chronic flexion deformity at the DIP joint of the right small finger. Neurovascular intact. No pain at the wrist. General Extremety ED: Negative for edema General Extremity: Negative for edema Neuro oriented x3, CN's II-XII intact bilaterally, no sensory deficits noted and gait normal Sensorium / Orientation: awake, alert, oriented to person, oriented to place and oriented to time Motor Exam: strength 5/5 throughout and strength abnormal Psych mental status grossly normal Skin no rashes or lesions noted and no wounds MDM MDM MDM Narrative Medical decision making narrative: Patient presents with injury to the right hand that occurred 5 days ago. X-rays show a fracture through the mid fifth metacarpal. Patient was placed in a ulnar gutter splint fabricated by myself out of [employer]. Will be given a sling. He will be referred to orthopedics for follow-up. He did not want thing for pain. Radiography Diagnostic Testing: Three-view x-rays of the right hand obtained interpreted by myself as fracture of the fifth metacarpal without significant displacement. Discharge Plan Triage Chief Complaint: Upper Extremity Injury ED Provider: Jason Robertson Dx/Rx/DC Orders Clinical Impression: Closed fracture of metacarpal of right hand Instructions: ED Boxer Fracture, ED Closed Hand Fracture (Adult) Prescriptions: No Action tramadol 50 mg tablet 50 mg PO Q6H PRN (Reason: pain) Qty: 12 0RF Primary Care Provider: Care Physician,No Primary Referrals: David Ross MD [Med Staff - Active Staff] - 3-5 Days Care Physician,No Primary [Primary Care Provider] - Print Language: Liberian Disposition Disposition: Home, Self Care
[2024-09-12 10:48] VITALS: BP 146/88; PULSE 76; RESP 16; TEMP 37.2; O2SAT 99
== END 2024-09-12 10:49 | disposition home or self-care (01) ==
LOC: ED 10:31
PROVIDERS: Emergency Provider Emergency Medicine; PCP Internal Medicine; Visit Provider Emergency Medicine
DX: S62.356A Nondisplaced fracture of shaft of fifth metacarpal bone, right hand, initial encounter for closed fracture (principal); W22.01XA Walked into wall, initial encounter
CPT/HCPCS: 73130; 99283

== ENCOUNTER 2024-12-22 21:34 | Emergency (ER) | payer MEDICAID, SELFPAY ==
[2024-12-22 21:35] VITALS: BP 155/100; PULSE 99; RESP 18; TEMP 36.2; O2SAT 97; BMI 43.2
[2024-12-22 22:34] VITALS: PULSE 74; RESP 18; O2SAT 95
--- NOTE | 2024-12-22 22:34 | EDS_ITS ---
HPI HPI - Psych History of Present Illness Chief Complaint: Suicidal Narrative Narrative: 34-year-old male past medical history of depression, not on medication presents himself with depression and suicidal thoughts. He states that he wanted to jump off a bridge, but there were no bridges on the way to the emergency department. He states that he is going through things with his . Punched himself in the jaw today and sustained an injury to his right hand. He is right-hand dominant. He attempted suicide 18 years ago when he was around 19 years old. He is currently not on medication. He endorses insomnia and decreased appetite as well. [facility] Medical History (Updated 12/23/24 @ 00:37 by Mikael Alvarenga MD) GERD (gastroesophageal reflux disease) Morbid obesity Allergy/AdvReac Type Severity Reaction Status Date / Time ibuprofen (From Motrin) AdvReac Upset Verified 12/22/24 21:35 Stomach naproxen AdvReac Upset Verified 12/22/24 21:35 Stomach Family History Mother Hypertension Social History Smoking Status: Light Smoker (<10/day) substance use type: marijuana ROS ROS ED ROS Narrative Review of systems positive for depression, suicidal thoughts with plan to jump off a bridge. Right hand pain and swelling after punching himself in the face. Denies chest pain, shortness of breath, or other symptoms. EXAM Physical Exam Narrative Exam Narrative: Afebrile. Vital signs noted. Nontoxic-appearing. Cardiovascular examination regular rate and rhythm. Lungs are clear to auscultation bilaterally. Abdomen soft and nontender with positive bowel sounds. Neurological examination is nonfocal and nonlateralizing. Psychiatric examination reveals depressed affect. Positive suicidal thoughts. There is mild swelling at the base of the fifth metacarpal on the right hand. Full range of motion of wrist. Palpable radial pulse. Const Vital Signs: 12/22/24 21:35 12/22/24 22:34 12/22/24 23:00 Temperature 97.1 F L Temperature Source Temporal Pulse Rate 99 74 75 Respiratory Rate 18 18 18 Blood Pressure 155/100 H Blood Pressure Mean 118 Pulse Ox 97 95 97 Oxygen Delivery Method Room Air Room Air Room Air 12/23/24 00:00 12/23/24 01:59 Temperature Temperature Source Pulse Rate 85 Respiratory Rate 16 18 Blood Pressure 126/72 H Blood Pressure Mean 90 Pulse Ox 97 97 Oxygen Delivery Method Room Air Room Air MDM MDM MDM Narrative Medical decision making narrative: I do not feel differential diagnosis is applicable in this case. Patient is having problems with depression and suicidal ideation with plan to jump off a bridge. Medical screening labs will be obtained. With concern for hand fracture versus contusion, x-rays will be obtained of the right hand to rule out fracture. On my independent interpretation of the x-rays of the right hand, there appears to be an acute on chronic fracture of the right fifth metacarpal midshaft. It appears oblique. Patient was placed in an ulnar gutter splint using Orth[employer]ass fabricated by myself. He remained neurovascular intact distally afterwards. I reviewed his laboratory work and he has normal white count of 8.8 with hemoglobin 14.3, platelet count normal at 272. CMP is grossly unremarkable with a glucose of 79. LFTs are grossly unremarkable. Ethyl alcohol slightly elevated at 62 but below the legal limit. Urine for drugs of abuse positive for cannabinoids for which she admits to using on occasion. At this point in time, I do feel he is medically cleared for evaluation by the mental health counselor. Final disposition is pending, but given his depression and anxiety and suicidal ideation, he may require placement in a psychiatric facility. In discussion with the mental health counselor, was thought that he would benefit from inpatient psychiatric services. He has been accepted at [facility]. He is currently awaiting transfer. Disposition is transferred in stable condition. History & Record Review Discussion w/independent historian: Patient Lab Data Attestation: I reviewed the patient's lab results. Labs: Laboratory Results - last 24 hr 12/22/24 21:50 WBC 8.8 RBC 5.18 Hgb 14.3 Hct 44.4 MCV 85.7 MCH 27.6 MCHC 32.2 RDW Std Deviation 38.2 RDW Coeff of Renan 12.0 Plt Count 272 MPV 10.7 Immature Gran % (Auto) 0.200 Neut % (Auto) 58.6 Lymph % (Auto) 31.8 [place] % (Auto) 6.9 Eos % (Auto) 2.0 Baso % (Auto) 0.5 Absolute Neuts (auto) 5.2 Absolute Lymphs (auto) 2.80 Nucleated RBC % 0 Sodium 141 Potassium 3.8 Chloride 106 Carbon Dioxide 26.0 Anion Gap 9 BUN 14 Creatinine 1.06 Estim Creat Clear Calc 163.32 Est GFR (MDRD) Af Amer 104 Est GFR (MDRD) Non-Af 86 BUN/Creatinine Ratio 13.2 Glucose 79 Calcium 9.3 Total Bilirubin 0.30 AST 26 ALT 31 Alkaline Phosphatase 85 Total Protein 8.4 H Albumin 3.9 Globulin 4.5 H Albumin/Globulin Ratio 0.9 Urine Opiates Screen NEGATIVE Urine Methadone Screen NEGATIVE Ur Barbiturates Screen NEGATIVE Ur Phencyclidine Scrn NEGATIVE Ur Amphetamines Screen NEGATIVE MDMA (Ecstasy) Screen NEGATIVE U Benzodiazepines Scrn NEGATIVE Urine Cocaine Screen NEGATIVE U Cannabinoids Screen POSITIVE H Ur Drug Screen Comment Ethyl Alcohol 62.0 Radiography Diagnostic Testing: Clinical Impression(s) from Imaging Studies Hand X-Ray 12/22/24 22:45 IMPRESSION: Probable acute on chronic oblique fracture of the mid 5th metacarpal with overlying soft tissue swelling. No additional fractures or malalignment. Reading Location: [facility] Management Discussion w/another healthcare provider: Behavioral health Discharge Plan Triage Chief Complaint: Suicidal ED Provider: Mikael Alvarenga Dx/Rx/DC Orders Clinical Impression: Depression, Suicidal ideation, Fracture of fifth metacarpal bone of right hand Primary Care Provider: Amari Flynn Referrals: Amari Flynn MD [Primary Care Provider] - Print Language: Monegasque Disposition Disposition: Psychiatric Hospital or Unit Discharge Location: [facility]
--- NOTE | 2024-12-22 22:45 | RAD_ITS ---
PROCEDURE: Right hand radiographs REASON FOR EXAM: 12/22/2024 TECHNIQUE: Pain, trauma COMPARISON: 09/12/2024 FINDINGS: See impression RAD/Hand Min 3 Views IMPRESSION: Probable acute on chronic oblique fracture of the mid 5th metacarpal with overl gorge soft tissue swelling. No additional fractures or malalignment. Reading Location: [facility]
[2024-12-22 22:50] LABS: Absolute Neutrophil Count 5.2 X10^3/uL (2.0-7.7); Basophil# 0.04 X10^3/uL; Basophil% 0.5 % (0-1); Eosinophil# 0.18 X10^3/uL; Hematocrit 44.4 % (40-54); Hemoglobin 14.3 g/dL (13.0-16.5); Lymphocyte % 31.8 % (19-41); Mean Corp Hgb Conc 32.2 g/dL (32-36); Mean Corpuscular Hgb 27.6 pg (27.0-32.0); Mean Corpuscular Volume 85.7 fL (80-94); Mean Platelet Vol. 10.7 fl (6.2-12.0); Monocyte# 0.61 X10^3/uL; Monocyte% 6.9 % (0-10); NRBC Flagged by Analyzer 0 % (0-5); Neutrophil # 5.16 X10^3/uL (2.7-7.7); Neutrophil % 58.6 % (47-70); Platelet Count 272 K/mm3 (150-450); RBC Distribution Width SD 38.2 fl (35.1-43.9); Red Blood Count 5.18 M/mm3 (4.6-6.2); White Blood Count 8.8 K/mm3 (4.4-11.0)
[2024-12-22 23:00] VITALS: PULSE 75; RESP 18; O2SAT 97
[2024-12-22 23:12] LABS: ALB/GLOB Ratio 0.9 RATIO (0.9-2.4); AST(SGOT) 26 U/L (15-37); Alanine Aminotransfer ALT/SGPT 31 U/L (16-61); Albumin, Serum 3.9 g/dL (3.2-5.0); Alkaline Phosphatase 85 U/L (45-117); Anion Gap 9 (5-15); BUN 14 mg/dL (7-18); BUN/Creat Ratio 13.2 RATIO (10-20); Calcium,Total 9.3 mg/dL (8.5-10.1); Chloride 106 mmol/L (98-107); Creatinine, Serum 1.06 mg/dL (0.70-1.30); EST Glomerular Filtration Rate 86 mL/min (>60); Est Glom Filt Rate - Afr Amer 104 mL/min (>60); Estimated Creatinine Clearance 163.32 ml/min; Globulin 4.5 g/dL (2.2-4.2); Glucose 79 mg/dL (74-106); Potassium 3.8 mmol/L (3.5-5.1); Protein, Total 8.4 g/dL (6.4-8.2); Sodium Level 141 mmol/L (136-145)
[2024-12-22 23:27] LABS: Amphetamine Urine NEGATIVE (<1000 ng/mL); Barbiturate Urine VISTA NEGATIVE (< 200 ng/mL); Benzodiazepine Urine VISTA NEGATIVE (< 200 ng/mL); Cocaine Urine VISTA NEGATIVE (< 300 ng/mL); Ecstacy Urine VISTA NEGATIVE (< 500 ng/mL); Methadone Urine VISTA NEGATIVE (< 300 ng/mL); Opiates Urine NEGATIVE (< 300 ng/mL); PCP Urine NEGATIVE (< 25 ng/mL); THC Urine VISTA POSITIVE (< 50 ng/mL); Vista UDS pH Range 6
[2024-12-23] VITALS: RESP 16; O2SAT 97
[2024-12-23 01:59] VITALS: BP 126/72; PULSE 85; RESP 18; O2SAT 97
--- NOTE | 2024-12-23 02:22 | ED.RN ---
PT ACCEPTED AT [facility] [address] [phone] [place] [phone] [place] ETA 9AM REQUESTED PER FACILITY.
[2024-12-23] MEDS: Acetaminophen 500 MG Tablet 1000 MG PO (07:21)
[2024-12-23 08:35] VITALS: BP 126/72; PULSE 85; RESP 18; TEMP 36.5; O2SAT 97
== END 2024-12-23 08:39 ==
PROVIDERS: Emergency Provider Emergency Medicine; PCP Internal Medicine; Visit Provider Emergency Medicine
DX: F32.A Depression, unspecified (principal); S62.326A Displaced fracture of shaft of fifth metacarpal bone, right hand, initial encounter for closed fracture; R45.851 Suicidal ideations; F41.9 Anxiety disorder, unspecified; K21.9 Gastro-esophageal reflux disease without esophagitis; X58.XXXA Exposure to other specified factors, initial encounter
CPT/HCPCS: 29125; 73130; 80053; 80307; 82077; 85025; 99284

== ENCOUNTER 2025-07-03 07:45 | Emergency (ER) | payer SELFPAY ==
[2025-07-03 07:46] VITALS: BP 167/91; PULSE 70; RESP 18; TEMP 37.2; O2SAT 99; BMI 41.8
--- NOTE | 2025-07-03 07:52 | EDS_ITS ---
HPI History of Present Illness Chief Complaint: Dental Detail of Chief Complaint: Dental pain involving tooth #4 Informant: patient Onset/Context/Timing Onset: Weeks (Pain started 1 week ago.) Context: Sudden Onset Timing: Continuous Quality: Pain Location: Tooth #4 Current Severity: Mild Maximum Severity: Severe Worsened by: Initially cold liquid now hot Associated Symptoms Assocated Symptom - Dental: face swelling, cold sensitivity and hot sensitivity; Negative for fever or jaw swelling Narrative Narrative: Patient is a 34-year-old male. He does not have a dentist. He states about a month ago he had a bubble that popped. He has now had pain for the past week. His reported initially sensitive to cold liquids. He is now complaining of sensitivity to hot liquids. He has history of ulcer and NSAIDs are contraindicated. Patient denies history of medic fever, heart murmur, mitral prolapse or SBE. Patient denies use of IV drugs. Patient has no allergy to a ntibiotics. [facility] Medical History (Updated 12/31/24 @ 00:02 by Marci Parham) GERD (gastroesophageal reflux disease) Morbid obesity Allergy/AdvReac Type Severity Reaction Status Date / Time ibuprofen (From Motrin) AdvReac Upset Verified 07/03/25 07:46 Stomach naproxen AdvReac Upset Verified 07/03/25 07:46 Stomach Family History Mother Hypertension Social History housing: house Smoking Status: Light Smoker (<10/day) substance use type: marijuana EXAM Physical Exam Const Vital Signs: 07/03/25 07:46 Temperature 98.9 F Temperature Source Oral Pulse Rate 70 Respiratory Rate 18 Blood Pressure 167/91 H Blood Pressure Mean 116 Pulse Ox 99 Discharge Plan Triage Chief Complaint: Dental ED Provider: Nathan Cabello Dx/Rx/DC Orders Primary Care Provider: Amari Flynn Referrals: Amari Flynn MD [Primary Care Provider] - Print Language: Kuwaiti
--- NOTE | 2025-07-03 07:52 | ED.VIS.DENTA ---
HPI History of Present Illness Chief Complaint: Dental Detail of Chief Complaint: Dental pain involving tooth #4 Informant: patient Onset/Context/Timing Onset: Weeks (Pain started 1 week ago.) Context: Sudden Onset Timing: Continuous Quality: Pain Location: Tooth #4 Current Severity: Mild Maximum Severity: Severe Worsened by: Initially cold liquid now hot Associated Symptoms Assocated Symptom - Dental: face swelling, cold sensitivity and hot sensitivity; Negative for fever or jaw swelling Narrative Narrative: Patient is a 34-year-old male. He does not have a dentist. He states about a month ago he had a bubble that popped. He has now had pain for the past week. His reported initially sensitive to cold liquids. He is now complaining of sensitivity to hot liquids. He has history of ulcer and NSAIDs are contraindicated. Patient denies history of medic fever, heart murmur, mitral prolapse or SBE. Patient denies use of IV drugs. Patient has no allergy to antibiotics. He does report facial swelling. He denies fever or chills. He denies nausea, vomiting or diarrhea. Prior similar symptoms: Yes Recent Illness/Hospitalization: No PFSH PFSH Medical History GERD (gastroesophageal reflux disease) Morbid obesity Home Medications ?Medication ?Instructions ?Recorded ?Last Taken ?Type hydrocodone-acetaminophen 5-325mg 1 tab PO Q6H PRN PRN Pain 3 days 07/03/25 Unknown Rx 5mg-325mg #10 TABLETS penicillin V potassium 500 mg 500 mg PO 4X/DAY #40 tabs 07/03/25 Unknown Rx tablet Allergy/AdvReac Type Severity Reaction Status Date / Time ibuprofen (From Motrin) AdvReac Upset Verified 07/03/25 07:46 Stomach naproxen AdvReac Upset Verified 07/03/25 07:46 Stomach Family History Mother Hypertension Social History housing: house Smoking Status: Light Smoker (<10/day) substance use type: marijuana ROS ROS ED Constitutional Constitutional ED: Denies chills, fever(s), subjective, sweats or weight loss ENT ENT ED: Reports other Details: Dental pain. ; Denies ear pain, rhinorrhea or sore throat Cardiovascular Cardiovascular: Reports other Details: Further detailed HPI narrative ; Denies chest pain or palpitations Gastrointestinal Gastrointestinal: Denies nausea or vomiting Musculoskeletal Musculoskeletal: Denies arthralgias or myalgias Integumentary Denies rash EXAM Physical Exam Const Vital Signs: 07/03/25 07:46 Temperature 98.9 F Temperature Source Oral Pulse Rate 70 Respiratory Rate 18 Blood Pressure 167/91 H Blood Pressure Mean 116 Pulse Ox 99 Positive well nourished and well developed Constitutional Narrative: Blood pressure is elevated. There is no history of elevated blood pressure. General Appearance ED: well developed and NAD HEENT Negative for trauma or tenderness Mouth ED: Yes lips normal, Yes tongue normal, Yes salivary gland normal, No mouth trauma and No oral and palatal mucosa abnormal Mouth: lips normal, tongue normal, salivary gland normal, No mouth trauma and No oral and palatal mucosa abnormal Teeth and Gingiva: abnormal tooth and associated gingiva, caries, gingiva abnormal, poor dentition and teeth discoloration Throat: posterior oropharynx normal Eyes PERRL and EOMs intact bilaterally Neck no lymphadenopathy, supple and no JVD Neck Narrative: Trachea is midline. There is no dysphonia or stridor. General: Negative for anterior neck swelling, tenderness or submandibular swelling Lymph Lymphatic: no lymphadenopathy noted Chest Wall inspection of chest normal Resp normal respiratory effort, no retractions and clear to auscultation bilaterally Cardio regular rate, regular rhythm, S1 normal heart sound, S2 normal heart sound and no murmurs Neuro oriented x3 and CN's II-XII intact bilaterally Sensorium / Orientation: alert Psych mental status grossly normal Skin no rashes or lesions noted and no wounds MDM MDM MDM Narrative Medical decision making narrative: Patient in all likely has an apical abscess. It is not fistulized at this time. He has numerous dental caries with poor dental hygiene. He was treated with penicillin since he drove to the ER and has no one else to drive him home. If he does not a physician will sign him a physician for follow-up for his elevated blood pressure. Prescription for Pen-Vee K and Maxwell was sent to his designated pharmacy. There is no evidence of facial cellulitis. Discharge Plan Triage Chief Complaint: Dental ED Provider: Nathan Cabello Dx/Rx/DC Orders Clinical Impression: Apical abscess, GERD (gastroesophageal reflux disease), Dental caries limited to enamel, Gingivitis, Periodontal disease, History of peptic ulcer disease, Elevated blood-pressure reading without diagnosis of hypertension Instructions: ED Dental Abscess, ED Hypertension, To Be Confirmed Prescriptions: New hydrocodone-acetaminophen 5-325 mg tablet 1 tab PO Q6H PRN PRN (Reason: Pain) 3 Days Qty: 10 0RF penicillin V potassium 500 mg tablet 500 mg PO 4X/DAY Qty: 40 0RF Primary Care Provider: Amari Flynn Referrals: Amari Flynn MD [Primary Care Provider] - 1 Week Activity Restrictions/Additional Instructions: 1. You need to contact a dentist for definitive dental care. You may have pain until you are seen by him because I am concerned you have irreversible pulpitis 2. Your blood pressure is elevated. You need to have this reassessed in [address] Flynn Print Language: Mongolian Disposition Disposition: Home, Self Care
[2025-07-03 07:58] VITALS: BP 167/91; PULSE 70; RESP 18; TEMP 37.2; O2SAT 99
== END 2025-07-03 08:15 | disposition home or self-care (01) ==
LOC: ED 08:13
PROVIDERS: Emergency Provider Emergency Medicine; PCP Internal Medicine; Visit Provider Emergency Medicine
DX: K04.7 Periapical abscess without sinus (principal); K02.9 Dental caries, unspecified; R03.0 Elevated blood-pressure reading, without diagnosis of hypertension; K21.9 Gastro-esophageal reflux disease without esophagitis; F17.200 Nicotine dependence, unspecified, uncomplicated; K05.10 Chronic gingivitis, plaque induced; Z87.19 Personal history of other diseases of the digestive system
CPT/HCPCS: 99283